=== PATIENT | male | born 1970 | race African-American/Black ===

== ENCOUNTER 2019-02-23 09:58 | Inpatient (IN) | payer OTHER | END 2019-03-03 09:00 | disposition left against medical advice (07) | LOC: YASAS 09:58 → Y3W 13:17 ==

== ENCOUNTER 2021-11-10 13:45 | Emergency (ER) | payer OTHER ==
[2021-11-10 14:02] VITALS: TEMP 98.5; BMI 29.5
[2021-11-10 18:55] VITALS: BP 137/89; PULSE 67
== END 2021-11-10 19:26 | disposition home or self-care (01) ==
LOC: JER 13:45
DX: T40.1X1A Poisoning by heroin, accidental (unintentional), initial encounter (principal)
CPT/HCPCS: 70450-TC; 82962; 93005; 93010; 99284-25

== ENCOUNTER 2022-01-26 09:17 | Inpatient (IN) | payer OTHER ==
[2022-01-26 09:46] VITALS: BMI 33.3
[2022-01-26] MEDS ORDERED: MAGNESIUM CITRATE 300 ML BOTTLE PO PRN (10:04)
[2022-01-26] MEDS ORDERED: ACETAMINOPHEN 325 MG TABLET (FP) PO PRN (10:04)
[2022-01-26] MEDS ORDERED: P-EPHED 60MG/TRIPROLIDI 2.5MG TABLET PO PRN (10:04)
[2022-01-26] MEDS ORDERED: LOPERAMIDE HCL 2 MG CAPSULE PO PRN (10:04)
[2022-01-26] MEDS ORDERED: MAGNESIUM HYDROX 2400MG/30ML ORAL SUSPENSION 30 ML CUP PO PRN (10:04)
[2022-01-26] MEDS ORDERED: MAG HYDROX/AL HYDROX/SIMETH 30 ML UNIT-DOSE CUP PO PRN (10:04)
[2022-01-26] MEDS ORDERED: LORATADINE 10 MG TABLET PO PRN (10:07)
[2022-01-26] MEDS ORDERED: NICOTINE 14 MG/24 HOURS TOPICAL PATCH TD SCH (10:15)
[2022-01-26] MEDS: hydrOXYzine PAMOATE 25 MG CAPSULE (FP) PO SCH ×3 (19:06→21:35)
[2022-01-26] MEDS: NICOTINE 10 MG CARTRIDGE (INHALER) IH PRN (19:07)
[2022-01-26] MEDS: PRENATAL VITAMINS W/ FOLIC ACID TABLET (FP) PO SCH (19:08)
[2022-01-26] MEDS: NICOTINE 7 MG/24 HOURS TOPICAL PATCH TD SCH (19:08)
[2022-01-26] MEDS ORDERED: TUBERCULIN PPD 5 TU/0.1ML VIAL ID ONE (19:10)
[2022-01-26] MEDS: MELATONIN 5 MG TABLETS PO SCH (21:35)
[2022-01-26] MEDS: THIAMINE HCL 100 MG TABLET (FP) PO SCH (21:35)
[2022-01-27] MEDS: hydrOXYzine PAMOATE 25 MG CAPSULE (FP) PO SCH ×5 (06:22→21:08)
[2022-01-27] MEDS: methaDONE HCL 40 MG DISPERSABLE TABLET PO SCH (07:16)
[2022-01-27] MEDS: PRENATAL VITAMINS W/ FOLIC ACID TABLET (FP) PO SCH (10:10)
[2022-01-27] MEDS: amLODIPine BESYLATE 10 MG TABLET (FP) PO SCH (10:10)
[2022-01-27] MEDS: NICOTINE 7 MG/24 HOURS TOPICAL PATCH TD SCH (10:10)
[2022-01-27] MEDS: guaiFENesin 200 MG/10 ML 10 ML UNIT-DOSE CUPS PO PRN ×2 (10:12→21:09)
[2022-01-27] MEDS ORDERED: FLUoxetine HCL 20 MG CAPSULE PO SCH ×2 (10:30→10:45)
[2022-01-27] MEDS ORDERED: FLUoxetine HCL 20 MG CAPSULE PO ONE ×2 (12:13→15:00)
[2022-01-27 12:24] LABS: PH,URINE 5.5 (5.0-8.0); URINE APPEARANCE CLEAR; URINE BILIRUBIN NEGATIVE (NEGATIVE); URINE COLOR YELLOW; URINE GLUCOSE (UA) NEGATIVE (NEGATIVE); URINE KETONE NEGATIVE (NEGATIVE); URINE LEUK ESTERASE NEGATIVE (NEGATIVE); URINE NITRITE NEGATIVE (NEGATIVE); URINE PROTEIN NEGATIVE (NEGATIVE); URINE UROBILINOGEN 0.2 mg/dL (0.2-1.0)
[2022-01-27] MEDS: BENZOCAINE/MENTHOL (CHLORASEPTIC ) LOZENGE MM PRN ×2 (15:24→21:10)
[2022-01-27] MEDS: THIAMINE HCL 100 MG TABLET (FP) PO SCH (21:08)
[2022-01-27] MEDS: MELATONIN 5 MG TABLETS PO SCH (21:08)
[2022-01-27] MEDS: OLANZapine 5 MG TABLET PO SCH (21:09)
[2022-01-28] MEDS: hydrOXYzine PAMOATE 25 MG CAPSULE (FP) PO SCH ×5 (06:25→21:13)
[2022-01-28] MEDS: methaDONE HCL 40 MG DISPERSABLE TABLET PO SCH (06:25)
[2022-01-28] MEDS: guaiFENesin 200 MG/10 ML 10 ML UNIT-DOSE CUPS PO PRN (06:27)
[2022-01-28] MEDS: BENZOCAINE/MENTHOL (CHLORASEPTIC ) LOZENGE MM PRN (06:27)
[2022-01-28] MEDS: PRENATAL VITAMINS W/ FOLIC ACID TABLET (FP) PO SCH (10:09)
[2022-01-28] MEDS: NICOTINE 7 MG/24 HOURS TOPICAL PATCH TD SCH (10:09)
[2022-01-28] MEDS: FLUoxetine HCL 20 MG CAPSULE PO SCH (10:09)
[2022-01-28] MEDS: amLODIPine BESYLATE 10 MG TABLET (FP) PO SCH (10:09)
[2022-01-28 14:27] LABS: ALBUMIN 3.5 g/dl (3.4-5.0); CREATININE 0.9 mg/dL (0.55-1.3)
[2022-01-28 14:28] LABS: BLOOD UREA NITROGEN 12.2 mg/dL (7-18)
[2022-01-28 14:32] LABS: TOT PROT 6.8 g/dl (6.4-8.2)
[2022-01-28 14:33] LABS: BILIRUBIN,TOTAL 0.5 mg/dL (0.2-1); HEMATOCRIT 38.9 % (35.4-49); HEMOGLOBIN 12.8 GM/dL (11.7-16.9); MCH 31.7 pg (25.7-33.7); MCHC 32.9 g/dl (32.0-35.9); MEAN CELL VOLUME 96.5 fl (80-96); MEAN PLT VOLUME 9.2 fl (7.5-11.1); PLATELET COUNT 247 10^3/uL (134-434); RBC 4.03 M/mm3 (4.00-5.60); RDW 13.5 % (11.9-15.9); WHITE BLOOD COUNT 8.3 K/mm3 (4.0-10.0)
[2022-01-28] MEDS ORDERED: [UNRECOGNIZED DRUG - REMARK] PO PRN (15:03)
[2022-01-28] MEDS: SULFAMETHOXAZOLE/TRIMETHOPRIM 800MG/160MG D.S. TABLET PO SCH ×2 (15:28→21:13)
[2022-01-28 15:38] LABS: HIV INTERPRETATION NEGATIVE (NEGATIVE)
[2022-01-28 15:43] LABS: SYPHILIS W/ RPR CONF REACTIVE (NONREACTIVE)
[2022-01-28] MEDS: ERYTHROMYCIN 0.5% OPHTHALMIC OINTMENT 3.5 GM TUBE OS SCH ×2 (17:50→21:14)
[2022-01-28] MEDS: OLANZapine 5 MG TABLET PO SCH (21:13)
[2022-01-28] MEDS: MELATONIN 5 MG TABLETS PO SCH (21:13)
[2022-01-28] MEDS: THIAMINE HCL 100 MG TABLET (FP) PO SCH (21:13)
[2022-01-29] MEDS: hydrOXYzine PAMOATE 25 MG CAPSULE (FP) PO SCH ×5 (06:56→21:45)
[2022-01-29] MEDS: methaDONE HCL 40 MG DISPERSABLE TABLET PO SCH (06:57)
[2022-01-29] MEDS ORDERED: BACITRACIN 3.5 GM OPTHALMIC OINT TUBE OS SCH (09:15)
[2022-01-29] MEDS: FLUoxetine HCL 20 MG CAPSULE PO SCH (10:17)
[2022-01-29] MEDS: SULFAMETHOXAZOLE/TRIMETHOPRIM 800MG/160MG D.S. TABLET PO SCH ×2 (10:18→21:45)
[2022-01-29] MEDS: amLODIPine BESYLATE 10 MG TABLET (FP) PO SCH (10:18)
[2022-01-29] MEDS: NICOTINE 7 MG/24 HOURS TOPICAL PATCH TD SCH (10:18)
[2022-01-29] MEDS: PRENATAL VITAMINS W/ FOLIC ACID TABLET (FP) PO SCH (10:19)
[2022-01-29] MEDS: ERYTHROMYCIN 0.5% OPHTHALMIC OINTMENT 3.5 GM TUBE OS SCH ×4 (10:20→21:46)
[2022-01-29] MEDS: THIAMINE HCL 100 MG TABLET (FP) PO SCH (21:45)
[2022-01-29] MEDS: OLANZapine 5 MG TABLET PO SCH (21:45)
[2022-01-29] MEDS: MELATONIN 5 MG TABLETS PO SCH (21:45)
[2022-01-30] MEDS: methaDONE HCL 40 MG DISPERSABLE TABLET PO SCH (06:21)
[2022-01-30] MEDS: hydrOXYzine PAMOATE 25 MG CAPSULE (FP) PO SCH ×5 (06:21→21:17)
[2022-01-30] MEDS: PRENATAL VITAMINS W/ FOLIC ACID TABLET (FP) PO SCH (09:48)
[2022-01-30] MEDS: FLUoxetine HCL 20 MG CAPSULE PO SCH (09:49)
[2022-01-30] MEDS: NICOTINE 7 MG/24 HOURS TOPICAL PATCH TD SCH (09:49)
[2022-01-30] MEDS: amLODIPine BESYLATE 10 MG TABLET (FP) PO SCH (09:50)
[2022-01-30] MEDS: SULFAMETHOXAZOLE/TRIMETHOPRIM 800MG/160MG D.S. TABLET PO SCH ×2 (09:50→21:18)
[2022-01-30] MEDS: ERYTHROMYCIN 0.5% OPHTHALMIC OINTMENT 3.5 GM TUBE OS SCH ×4 (09:50→23:46)
[2022-01-30] MEDS: NICOTINE 10 MG CARTRIDGE (INHALER) IH PRN (09:52)
[2022-01-30] MEDS: guaiFENesin 200 MG/10 ML 10 ML UNIT-DOSE CUPS PO PRN ×2 (09:55→21:19)
[2022-01-30] MEDS: BENZOCAINE/MENTHOL (CHLORASEPTIC ) LOZENGE MM PRN ×2 (09:55→21:20)
[2022-01-30] MEDS: THIAMINE HCL 100 MG TABLET (FP) PO SCH (21:17)
[2022-01-30] MEDS: MELATONIN 5 MG TABLETS PO SCH (21:17)
[2022-01-30] MEDS: OLANZapine 5 MG TABLET PO SCH (21:18)
[2022-01-31] MEDS: IBUPROFEN 400 MG TABLET (FP) PO PRN ×2 (01:11→10:15)
[2022-01-31] MEDS: methaDONE HCL 40 MG DISPERSABLE TABLET PO SCH (06:57)
[2022-01-31] MEDS: hydrOXYzine PAMOATE 25 MG CAPSULE (FP) PO SCH ×5 (06:57→21:37)
[2022-01-31] MEDS: ERYTHROMYCIN 0.5% OPHTHALMIC OINTMENT 3.5 GM TUBE OS SCH ×4 (10:11→21:50)
[2022-01-31] MEDS: amLODIPine BESYLATE 10 MG TABLET (FP) PO SCH (10:11)
[2022-01-31] MEDS: PRENATAL VITAMINS W/ FOLIC ACID TABLET (FP) PO SCH (10:11)
[2022-01-31] MEDS: NICOTINE 7 MG/24 HOURS TOPICAL PATCH TD SCH (10:11)
[2022-01-31] MEDS: FLUoxetine HCL 20 MG CAPSULE PO SCH (10:11)
[2022-01-31] MEDS: SULFAMETHOXAZOLE/TRIMETHOPRIM 800MG/160MG D.S. TABLET PO SCH ×2 (10:11→21:37)
[2022-01-31] MEDS: guaiFENesin 200 MG/10 ML 10 ML UNIT-DOSE CUPS PO PRN ×2 (10:15→21:38)
[2022-01-31] MEDS: BENZOCAINE/MENTHOL (CHLORASEPTIC ) LOZENGE MM PRN ×2 (10:16→21:39)
[2022-01-31] MEDS: OLANZapine 5 MG TABLET PO SCH (21:37)
[2022-01-31] MEDS: THIAMINE HCL 100 MG TABLET (FP) PO SCH (21:37)
[2022-01-31] MEDS: MELATONIN 5 MG TABLETS PO SCH (21:37)
[2022-02-01] MEDS: methaDONE HCL 40 MG DISPERSABLE TABLET PO SCH (06:04)
[2022-02-01] MEDS: hydrOXYzine PAMOATE 25 MG CAPSULE (FP) PO SCH ×5 (06:04→21:11)
[2022-02-01] MEDS: PRENATAL VITAMINS W/ FOLIC ACID TABLET (FP) PO SCH (09:58)
[2022-02-01] MEDS: SULFAMETHOXAZOLE/TRIMETHOPRIM 800MG/160MG D.S. TABLET PO SCH ×2 (09:58→21:11)
[2022-02-01] MEDS: amLODIPine BESYLATE 10 MG TABLET (FP) PO SCH (09:58)
[2022-02-01] MEDS: ERYTHROMYCIN 0.5% OPHTHALMIC OINTMENT 3.5 GM TUBE OS SCH ×4 (09:59→21:12)
[2022-02-01] MEDS: NICOTINE 7 MG/24 HOURS TOPICAL PATCH TD SCH (09:59)
[2022-02-01] MEDS ORDERED: LIDOCAINE VISCOUS 2% ORAL/TOP 15 ML UNIT-DOSE CUP MM PRN (11:28)
[2022-02-01] MEDS: FLUoxetine HCL 20 MG CAPSULE PO SCH (12:16)
[2022-02-01] MEDS: OLANZapine 5 MG TABLET PO SCH (21:11)
[2022-02-01] MEDS: MELATONIN 5 MG TABLETS PO SCH (21:12)
[2022-02-01] MEDS: THIAMINE HCL 100 MG TABLET (FP) PO SCH (21:12)
[2022-02-01] MEDS: BENZOCAINE/MENTHOL (CHLORASEPTIC ) LOZENGE MM PRN (21:14)
[2022-02-01] MEDS: guaiFENesin 200 MG/10 ML 10 ML UNIT-DOSE CUPS PO PRN (21:14)
[2022-02-02] MEDS: hydrOXYzine PAMOATE 25 MG CAPSULE (FP) PO SCH ×2 (06:53→11:58)
[2022-02-02] MEDS: methaDONE HCL 40 MG DISPERSABLE TABLET PO SCH (06:54)
[2022-02-02] MEDS: PRENATAL VITAMINS W/ FOLIC ACID TABLET (FP) PO SCH (10:37)
[2022-02-02] MEDS: FLUoxetine HCL 20 MG CAPSULE PO SCH (10:37)
[2022-02-02] MEDS: SULFAMETHOXAZOLE/TRIMETHOPRIM 800MG/160MG D.S. TABLET PO SCH ×2 (10:38→22:10)
[2022-02-02] MEDS: NICOTINE 7 MG/24 HOURS TOPICAL PATCH TD SCH (10:39)
[2022-02-02] MEDS: NICOTINE 10 MG CARTRIDGE (INHALER) IH PRN (10:40)
[2022-02-02] MEDS: ERYTHROMYCIN 0.5% OPHTHALMIC OINTMENT 3.5 GM TUBE OS SCH ×4 (10:41→22:11)
[2022-02-02] MEDS: guaiFENesin 200 MG/10 ML 10 ML UNIT-DOSE CUPS PO PRN (10:42)
[2022-02-02] MEDS: BENZOCAINE/MENTHOL (CHLORASEPTIC ) LOZENGE MM PRN (10:44)
[2022-02-02] MEDS: amLODIPine BESYLATE 10 MG TABLET (FP) PO SCH (11:58)
[2022-02-02] MEDS: OLANZapine 5 MG TABLET PO SCH (22:10)
[2022-02-02] MEDS: THIAMINE HCL 100 MG TABLET (FP) PO SCH (22:10)
[2022-02-02] MEDS: MELATONIN 5 MG TABLETS PO SCH (22:10)
[2022-02-03] MEDS: methaDONE HCL 40 MG DISPERSABLE TABLET PO SCH (06:39)
[2022-02-03] MEDS: FLUoxetine HCL 20 MG CAPSULE PO SCH (09:59)
[2022-02-03] MEDS: amLODIPine BESYLATE 10 MG TABLET (FP) PO SCH (10:00)
[2022-02-03] MEDS: NICOTINE 7 MG/24 HOURS TOPICAL PATCH TD SCH (10:00)
[2022-02-03] MEDS: SULFAMETHOXAZOLE/TRIMETHOPRIM 800MG/160MG D.S. TABLET PO SCH ×2 (10:00→21:03)
[2022-02-03] MEDS: ERYTHROMYCIN 0.5% OPHTHALMIC OINTMENT 3.5 GM TUBE OS SCH ×4 (10:01→21:04)
[2022-02-03] MEDS: PRENATAL VITAMINS W/ FOLIC ACID TABLET (FP) PO SCH (10:02)
[2022-02-03] MEDS: OLANZapine 5 MG TABLET PO SCH (21:03)
[2022-02-03] MEDS: THIAMINE HCL 100 MG TABLET (FP) PO SCH (21:03)
[2022-02-03] MEDS: MELATONIN 5 MG TABLETS PO SCH (21:03)
[2022-02-04] MEDS: methaDONE HCL 40 MG DISPERSABLE TABLET PO SCH (06:27)
[2022-02-04] MEDS: PRENATAL VITAMINS W/ FOLIC ACID TABLET (FP) PO SCH (10:11)
[2022-02-04] MEDS: FLUoxetine HCL 20 MG CAPSULE PO SCH (10:12)
[2022-02-04] MEDS: ERYTHROMYCIN 0.5% OPHTHALMIC OINTMENT 3.5 GM TUBE OS SCH ×4 (10:12→21:28)
[2022-02-04] MEDS: amLODIPine BESYLATE 10 MG TABLET (FP) PO SCH (10:12)
[2022-02-04] MEDS: NICOTINE 7 MG/24 HOURS TOPICAL PATCH TD SCH (10:13)
[2022-02-04] MEDS: guaiFENesin 600 MG TABLET.ER (FP) PO SCH ×2 (11:05→21:26)
[2022-02-04] MEDS: NAPHAZOLINE/PHENIRAMINE OPHTHALMIC 15 ML BOTTLE OS PRN ×2 (11:06→21:27)
[2022-02-04] MEDS: MELATONIN 5 MG TABLETS PO SCH (21:26)
[2022-02-04] MEDS: THIAMINE HCL 100 MG TABLET (FP) PO SCH (21:26)
[2022-02-04] MEDS: OLANZapine 5 MG TABLET PO SCH (21:26)
[2022-02-05] MEDS: methaDONE HCL 40 MG DISPERSABLE TABLET PO SCH (07:13)
[2022-02-05] MEDS: ERYTHROMYCIN 0.5% OPHTHALMIC OINTMENT 3.5 GM TUBE OS SCH ×4 (09:14→23:57)
[2022-02-05] MEDS: NAPHAZOLINE/PHENIRAMINE OPHTHALMIC 15 ML BOTTLE OS PRN ×2 (09:14→21:50)
[2022-02-05] MEDS: PRENATAL VITAMINS W/ FOLIC ACID TABLET (FP) PO SCH (09:14)
[2022-02-05] MEDS: guaiFENesin 600 MG TABLET.ER (FP) PO SCH ×2 (09:15→21:49)
[2022-02-05] MEDS: FLUoxetine HCL 20 MG CAPSULE PO SCH (09:16)
[2022-02-05] MEDS: amLODIPine BESYLATE 10 MG TABLET (FP) PO SCH (09:16)
[2022-02-05] MEDS: NICOTINE 7 MG/24 HOURS TOPICAL PATCH TD SCH (09:16)
[2022-02-05] MEDS: MELATONIN 5 MG TABLETS PO SCH (21:49)
[2022-02-05] MEDS: OLANZapine 5 MG TABLET PO SCH (21:49)
[2022-02-05] MEDS: hydrOXYzine PAMOATE 25 MG CAPSULE (FP) PO PRN (21:49)
[2022-02-05] MEDS: THIAMINE HCL 100 MG TABLET (FP) PO SCH (21:50)
[2022-02-05] MEDS: BENZOCAINE/MENTHOL (CHLORASEPTIC ) LOZENGE MM PRN (21:53)
[2022-02-06] MEDS: methaDONE HCL 40 MG DISPERSABLE TABLET PO SCH (06:32)
[2022-02-06] MEDS: ERYTHROMYCIN 0.5% OPHTHALMIC OINTMENT 3.5 GM TUBE OS SCH ×4 (10:28→21:29)
[2022-02-06] MEDS: NICOTINE 7 MG/24 HOURS TOPICAL PATCH TD SCH (10:28)
[2022-02-06] MEDS: FLUoxetine HCL 20 MG CAPSULE PO SCH (10:28)
[2022-02-06] MEDS: amLODIPine BESYLATE 10 MG TABLET (FP) PO SCH (10:28)
[2022-02-06] MEDS: PRENATAL VITAMINS W/ FOLIC ACID TABLET (FP) PO SCH (10:28)
[2022-02-06] MEDS: guaiFENesin 600 MG TABLET.ER (FP) PO SCH ×2 (10:29→21:28)
[2022-02-06] MEDS: OLANZapine 5 MG TABLET PO SCH (21:28)
[2022-02-06] MEDS: MELATONIN 5 MG TABLETS PO SCH (21:28)
[2022-02-06] MEDS: THIAMINE HCL 100 MG TABLET (FP) PO SCH (21:28)
[2022-02-07] MEDS: methaDONE HCL 40 MG DISPERSABLE TABLET PO SCH (06:39)
[2022-02-07] MEDS: FLUoxetine HCL 20 MG CAPSULE PO SCH (11:06)
[2022-02-07] MEDS: amLODIPine BESYLATE 10 MG TABLET (FP) PO SCH (11:06)
[2022-02-07] MEDS: ERYTHROMYCIN 0.5% OPHTHALMIC OINTMENT 3.5 GM TUBE OS SCH ×4 (11:07→21:25)
[2022-02-07] MEDS: guaiFENesin 600 MG TABLET.ER (FP) PO SCH ×2 (11:07→21:53)
[2022-02-07] MEDS: PRENATAL VITAMINS W/ FOLIC ACID TABLET (FP) PO SCH (11:07)
[2022-02-07] MEDS: NICOTINE 7 MG/24 HOURS TOPICAL PATCH TD SCH (11:07)
[2022-02-07] MEDS: BENZOCAINE/MENTHOL (CHLORASEPTIC ) LOZENGE MM PRN (11:09)
[2022-02-07] MEDS: OLANZapine 5 MG TABLET PO SCH (21:23)
[2022-02-07] MEDS: MELATONIN 5 MG TABLETS PO SCH (21:23)
[2022-02-07] MEDS: THIAMINE HCL 100 MG TABLET (FP) PO SCH (21:23)
[2022-02-08] MEDS: methaDONE HCL 40 MG DISPERSABLE TABLET PO SCH (06:27)
[2022-02-08 08:28] VITALS: TEMP 96.8
[2022-02-08] MEDS: PRENATAL VITAMINS W/ FOLIC ACID TABLET (FP) PO SCH (10:27)
[2022-02-08] MEDS: amLODIPine BESYLATE 10 MG TABLET (FP) PO SCH (10:27)
[2022-02-08] MEDS: ERYTHROMYCIN 0.5% OPHTHALMIC OINTMENT 3.5 GM TUBE OS SCH ×4 (10:27→21:14)
[2022-02-08] MEDS: guaiFENesin 600 MG TABLET.ER (FP) PO SCH ×2 (10:27→21:14)
[2022-02-08] MEDS: NICOTINE 7 MG/24 HOURS TOPICAL PATCH TD SCH (10:27)
[2022-02-08] MEDS: FLUoxetine HCL 20 MG CAPSULE PO SCH (10:27)
[2022-02-08] MEDS: IBUPROFEN 400 MG TABLET (FP) PO PRN (10:29)
[2022-02-08] MEDS: hydrOXYzine PAMOATE 25 MG CAPSULE (FP) PO PRN (10:30)
[2022-02-08 11:07] VITALS: BP 114/76; PULSE 70
[2022-02-08] MEDS: OLANZapine 5 MG TABLET PO SCH (21:13)
[2022-02-08] MEDS: MELATONIN 5 MG TABLETS PO SCH (21:14)
[2022-02-08] MEDS: THIAMINE HCL 100 MG TABLET (FP) PO SCH (21:14)
[2022-02-09] MEDS: methaDONE HCL 40 MG DISPERSABLE TABLET PO SCH (06:10)
[2022-02-09] MEDS: NICOTINE 7 MG/24 HOURS TOPICAL PATCH TD SCH (09:08)
[2022-02-09] MEDS: amLODIPine BESYLATE 10 MG TABLET (FP) PO SCH (09:08)
[2022-02-09] MEDS: FLUoxetine HCL 20 MG CAPSULE PO SCH (09:08)
[2022-02-09] MEDS: guaiFENesin 600 MG TABLET.ER (FP) PO SCH (09:08)
[2022-02-09] MEDS: ERYTHROMYCIN 0.5% OPHTHALMIC OINTMENT 3.5 GM TUBE OS SCH (09:09)
== END 2022-02-09 09:17 | disposition home or self-care (01) | DRG 772 ==
LOC: YASAS 09:17 → Y3W 17:44
PROVIDERS: ADMIT Allergy & Immunology; ATTEND Psychiatry & Neurology Pain Medicine
PROC: HZ42ZZZ Group Counseling for Substance Abuse Treatment, Cognitive-Behavioral (ICD-10-PCS; principal; 2022-01-26)
DX: F10.20 Alcohol dependence, uncomplicated (principal); F16.20 Hallucinogen dependence, uncomplicated; F17.210 Nicotine dependence, cigarettes, uncomplicated; F19.282 Other psychoactive substance dependence with psychoactive substance-induced sleep disorder; F19.24 Other psychoactive substance dependence with psychoactive substance-induced mood disorder; F41.9 Anxiety disorder, unspecified; F32.A Depression, unspecified; E78.5 Hyperlipidemia, unspecified; I10 Essential (primary) hypertension; J30.2 Other seasonal allergic rhinitis
CPT/HCPCS: 36415; 71045-TC-FY; 80053; 81003; 82947; 83036; 85027; 86593; 86780; 86803; 87389; 90832; C9803-CS; U0003; U0005

== ENCOUNTER 2022-01-28 11:19 | Emergency (ER) | payer OTHER ==
[2022-01-28 11:47] VITALS: BMI 34.7
[2022-01-28] MEDS ORDERED: ACETAMINOPHEN 500 MG TABLET (FP) PO ONE (12:19)
[2022-01-28] MEDS ORDERED: ACETAMINOPHEN 500 MG TABLET (FP) ONE (12:23)
[2022-01-28 14:14] VITALS: BP 121/76; PULSE 64
== END 2022-01-28 14:40 | disposition home or self-care (01) ==
LOC: JERFT 11:19
DX: S09.93XA Unspecified injury of face, initial encounter (principal); H10.32 Unspecified acute conjunctivitis, left eye
CPT/HCPCS: 70486-TC; 99284-25

== ENCOUNTER 2022-03-30 12:46 | Inpatient (IN) | payer OTHER ==
[2022-03-30 14:00] VITALS: RESP 18; BMI 36.9
[2022-03-31 00:04] VITALS: BP 126/73; PULSE 64; TEMP 97.1
== END 2022-03-31 12:00 | disposition home or self-care (01) | DRG 772 ==
LOC: YASAS 12:46 → Y5N 23:32
PROVIDERS: ADMIT Allergy & Immunology; ATTEND Psychiatry & Neurology Pain Medicine
PROC: HZ42ZZZ Group Counseling for Substance Abuse Treatment, Cognitive-Behavioral (ICD-10-PCS; principal; 2022-03-30)
DX: F11.20 Opioid dependence, uncomplicated (principal); F16.20 Hallucinogen dependence, uncomplicated; F10.20 Alcohol dependence, uncomplicated; F12.20 Cannabis dependence, uncomplicated; F17.210 Nicotine dependence, cigarettes, uncomplicated; G47.00 Insomnia, unspecified; I10 Essential (primary) hypertension; E11.9 Type 2 diabetes mellitus without complications; Z86.59 Personal history of other mental and behavioral disorders
CPT/HCPCS: 82962; 93005; 93010; 99284-25; C9803-CS; U0003; U0005

== ENCOUNTER 2022-03-30 15:41 | Emergency (ER) | payer OTHER ==
[2022-03-30 16:07] VITALS: TEMP 98.7; BMI 36.9
[2022-03-30] MEDS ORDERED: NALOXONE HCL 0.4 MG/ML VIAL IVPUSH ONE ×3 (17:24→21:34)
[2022-03-30] MEDS ORDERED: NALOXONE HCL 0.4 MG/ML VIAL ONE ×2 (17:44→21:39)
[2022-03-30 20:49] VITALS: BP 115/67; PULSE 71; RESP 20
== END 2022-03-30 22:53 ==
LOC: JER 15:41
PROC: 3E033GC Introduction of Other Therapeutic Substance into Peripheral Vein, Percutaneous Approach (ICD-10-PCS; principal; 2022-03-30)
DX: T50.904A Poisoning by unspecified drugs, medicaments and biological substances, undetermined, initial encounter (principal)
CPT/HCPCS: 93005; 93010; 99284-25; C9803-CS; U0003; U0005

== ENCOUNTER 2022-04-23 11:36 | Inpatient (IN) | payer OTHER ==
[2022-04-23 12:15] VITALS: BMI 39.1
[2022-04-23] MEDS ORDERED: KETOROLAC TROMETHAMINE 30 MG/1 ML VIAL IVPUSH ONE (13:10)
[2022-04-23] MEDS ORDERED: KETOROLAC TROMETHAMINE 30 MG/1 ML VIAL ONE (13:37)
[2022-04-23 14:23] LABS: HEMATOCRIT 34.6 % (35.4-49); HEMOGLOBIN 11.1 GM/dL (11.7-16.9); MCH 30.6 pg (25.7-33.7); MEAN CELL VOLUME 95.7 fl (80-96); MEAN PLT VOLUME 7.5 fl (7.5-11.1); PLATELET COUNT 326 10^3/uL (134-434); RBC 3.62 M/mm3 (4.00-5.60); RDW 14.3 % (11.9-15.9); WHITE BLOOD COUNT 22.9 K/mm3 (4.0-10.0)
[2022-04-23 14:37] LABS: INR 1.16 (0.83-1.09); PROTHROMBIN TIME (PATIENT) 13.4 SEC (9.7-13.0)
[2022-04-23 14:47] LABS: ANISOCYTOSIS 0; HELMET CELLS 0; HOWELL-JOLLY BODIES 0; MACROCYTOSIS 0; OVALOCYTE 0; ROULEAU 0; SICKELED CELLS 0; TARGET CELLS 0; TEAR DROP CELLS 0; TOXIC GRANULATION 0
[2022-04-23 14:52] LABS: CALCIUM 8.8 mg/dL (8.5-10.1)
[2022-04-23 14:54] LABS: ALBUMIN 3.1 g/dl (3.4-5.0); BLOOD UREA NITROGEN 11.3 mg/dL (7-18); MAGNESIUM 2.2 mg/dL (1.8-2.4)
[2022-04-23 14:57] LABS: CREATININE 0.8 mg/dL (0.55-1.3)
[2022-04-23 14:59] LABS: BILIRUBIN,TOTAL 0.9 mg/dL (0.2-1)
[2022-04-23 15:01] LABS: N-TERMINAL BNP 34.5 pg/ml (5-125)
[2022-04-23 16:01] LABS: EPI CELLS 13 /uL (0-25.1); HYALINE CASTS 2 /uL (0-3.1); URINE APPEARANCE CLEAR; URINE BACTERIA 0 /uL (0-1359); URINE BILIRUBIN 1+ (NEGATIVE); URINE COLOR DK YELLOW; URINE GLUCOSE (UA) NEGATIVE (NEGATIVE); URINE KETONE TRACE (NEGATIVE); URINE LEUK ESTERASE TRACE (NEGATIVE); URINE NITRITE NEGATIVE (NEGATIVE); URINE PROTEIN NEGATIVE (NEGATIVE); URINE RBC 15 /uL (0-23.9); URINE WBC 32 /uL (0-25.8)
[2022-04-23] MEDS ORDERED: VANCOMYCIN/WATER 1,250 MG/250 ML BAG IVPB ONE (19:06)
[2022-04-23] MEDS ORDERED: PIPERACILLIN/TAZOB 4.5 GM 4.5 GM in DEXTROSE 5%-WATER 100 ML IVPB ONE (19:06)
[2022-04-23] MEDS ORDERED: VANCOMYCIN/WATER 1250 MG 1,250 MG/250 ML BAG IVPB ONE (19:25)
[2022-04-23] MEDS ORDERED: PIPERACILLIN/TAZOB 4.5 GM 4.5 GM/100 ML BAG IVPB ONE (19:25)
[2022-04-23 19:36] LABS: BF WBC & OTHER NUCLEATED CELLS 940 /mm3
[2022-04-23] MEDS ORDERED: DOCUSATE SODIUM 100 MG CAPSULE (FP) PO PRN (19:51)
[2022-04-23] MEDS ORDERED: KETOROLAC TROMETHAMINE 15 MG/ML VIAL IVPUSH PRN (19:57)
[2022-04-23] MEDS ORDERED: ACETAMINOPHEN 1000 MG/100 ML BAG IVPB PRN (19:58)
[2022-04-23] MEDS ORDERED: MELATONIN 5 MG TABLETS PO PRN (19:59)
[2022-04-23 21:24] LABS: BODY FLUID BASOPHIL 1 %; BODY FLUID MONOCYTE 33 %; BODYL FLD EOSINOPHIL 1 %
[2022-04-24] MEDS: PIPERACILLIN/TAZOB 3.375 GM 3.375 GM in DEXTROSE 5%-WATER - 50 ML IVPB SCH ×3 (01:42→17:06)
[2022-04-24] MEDS ORDERED: NAPHAZOLINE/PHENIRAMINE OPHTHALMIC 15 ML BOTTLE OD PRN (04:09)
[2022-04-24] MEDS ORDERED: NICOTINE POLACRILEX 4 MG GUM BUC PRN (04:11)
[2022-04-24] MEDS ORDERED: VANCOMYCIN HCL 1,500 MG in DEXTROSE 5%-WATER - 500 ML IVPB ONE (07:00)
[2022-04-24] MEDS ORDERED: LORATADINE 10 MG TABLET PO PRN (07:17)
[2022-04-24 08:22] LABS: BASO % 0.5 % (0-2.0); EOS % 3.2 % (0-4.5); HEMATOCRIT 35.7 % (35.4-49); HEMOGLOBIN 11.5 GM/dL (11.7-16.9); LYMPH % 22.3 % (8-40); MCH 30.8 pg (25.7-33.7); MCHC 32.2 g/dl (32.0-35.9); MEAN CELL VOLUME 95.5 fl (80-96); MEAN PLT VOLUME 7.6 fl (7.5-11.1); MONO % 5.5 % (3.8-10.2); NEUT % 68.5 % (42.8-82.8); PLATELET COUNT 283 10^3/uL (134-434); RBC 3.73 M/mm3 (4.00-5.60); RDW 14.3 % (11.9-15.9); WHITE BLOOD COUNT 10.5 K/mm3 (4.0-10.0)
[2022-04-24 08:38] LABS: CALCIUM 8.5 mg/dL (8.5-10.1)
[2022-04-24 08:39] LABS: BLOOD UREA NITROGEN 12.5 mg/dL (7-18)
[2022-04-24 08:42] LABS: CREATININE 0.9 mg/dL (0.55-1.3)
[2022-04-24 08:51] LABS: URINE AMPHETAMINES NEGATIVE (NEGATIVE); URINE BARBITURATES NEGATIVE (NEGATIVE); URINE BENZODIAZEPINES NEGATIVE (NEGATIVE)
[2022-04-24 08:53] LABS: COCAINE, UR NEGATIVE (NEGATIVE)
[2022-04-24] MEDS: ENOXAPARIN NA (PORCINE) 40 MG/0.4 ML DISP.SYRIN SQ SCH (09:18)
[2022-04-24] MEDS: amLODIPine BESYLATE 10 MG TABLET (FP) PO SCH (09:19)
[2022-04-24 09:26] LABS: METHADONE, UR POSITIVE (NEGATIVE); OPIATES, URI POSITIVE (NEGATIVE); PHENCYCLIDINE,URINE POSITIVE (NEGATIVE)
[2022-04-24] MEDS: FLUoxetine HCL 20 MG CAPSULE PO SCH (11:07)
[2022-04-24] MEDS: OLANZapine 5 MG TABLET PO SCH (11:07)
[2022-04-24] MEDS: ATORVASTATIN CA 20 MG TABLET (FP) PO SCH (21:52)
[2022-04-24] MEDS: ACETAMINOPHEN 325 MG TABLET (FP) PO PRN (23:42)
[2022-04-25] MEDS: PIPERACILLIN/TAZOB 3.375 GM 3.375 GM in DEXTROSE 5%-WATER - 50 ML IVPB SCH ×4 (03:11→18:17)
[2022-04-25 09:04] VITALS: RESP 18
[2022-04-25] MEDS: ENOXAPARIN NA (PORCINE) 40 MG/0.4 ML DISP.SYRIN SQ SCH (09:04)
[2022-04-25] MEDS: OLANZapine 5 MG TABLET PO SCH (09:05)
[2022-04-25] MEDS: ACETAMINOPHEN 325 MG TABLET (FP) PO PRN (09:05)
[2022-04-25] MEDS: amLODIPine BESYLATE 10 MG TABLET (FP) PO SCH (09:05)
[2022-04-25] MEDS: FLUoxetine HCL 20 MG CAPSULE PO SCH (09:05)
[2022-04-25] MEDS: VANCOMYCIN HCL 1,500 MG in DEXTROSE 5%-WATER - 500 ML IVPB SCH (13:12)
[2022-04-25] MEDS: VANCOMYCIN/WATER FOR INJ (PEG) 1,000 MG/200 ML BAG IVPB SCH (14:34)
[2022-04-25] MEDS: ATORVASTATIN CA 20 MG TABLET (FP) PO SCH (21:05)
[2022-04-26] MEDS: VANCOMYCIN/WATER FOR INJ (PEG) 1,000 MG/200 ML BAG IVPB SCH ×2 (02:20→03:23)
[2022-04-26] MEDS: PIPERACILLIN/TAZOB 3.375 GM 3.375 GM in DEXTROSE 5%-WATER - 50 ML IVPB SCH ×2 (02:23→02:58)
[2022-04-26 09:14] LABS: HEMATOCRIT 33.4 % (35.4-49); HEMOGLOBIN 10.8 GM/dL (11.7-16.9); MCH 30.5 pg (25.7-33.7); MCHC 32.2 g/dl (32.0-35.9); MEAN CELL VOLUME 94.7 fl (80-96); MEAN PLT VOLUME 8.1 fl (7.5-11.1); PLATELET COUNT 324 10^3/uL (134-434); RBC 3.53 M/mm3 (4.00-5.60); RDW 13.6 % (11.9-15.9); WHITE BLOOD COUNT 20.5 K/mm3 (4.0-10.0)
[2022-04-26 09:40] LABS: ALBUMIN 2.8 g/dl (3.4-5.0); BLOOD UREA NITROGEN 12.4 mg/dL (7-18)
[2022-04-26 09:42] LABS: CREATININE 0.9 mg/dL (0.55-1.3)
[2022-04-26 09:44] LABS: CALCIUM 8.4 mg/dL (8.5-10.1)
[2022-04-26 09:45] LABS: BILIRUBIN,TOTAL 1.2 mg/dL (0.2-1)
[2022-04-26 09:51] LABS: TOT PROT 6.7 g/dl (6.4-8.2)
[2022-04-26 10:03] VITALS: BP 138/93; PULSE 96; TEMP 98.9
[2022-04-26 11:07] LABS: ANISOCYTOSIS 0; MACROCYTOSIS 0
[2022-04-26 12:05] LABS: HIV INTERPRETATION NEGATIVE (NEGATIVE)
== END 2022-04-26 10:11 | disposition home or self-care (01) | DRG 383 ==
LOC: JER 11:36 → JERBED 19:08 → J7W 23:06
PROVIDERS: ADMIT Internal Medicine; ATTEND Internal Medicine
PROC: 0S9C3ZZ Drainage of Right Knee Joint, Percutaneous Approach (ICD-10-PCS; principal; 2022-04-23)
DX: L03.115 Cellulitis of right lower limb (principal); I10 Essential (primary) hypertension; E78.5 Hyperlipidemia, unspecified; F41.8 Other specified anxiety disorders; F19.10 Other psychoactive substance abuse, uncomplicated; F11.20 Opioid dependence, uncomplicated; F17.200 Nicotine dependence, unspecified, uncomplicated; E11.9 Type 2 diabetes mellitus without complications; M25.561 Pain in right knee; J98.11 Atelectasis
CPT/HCPCS: 0241U-QW; 36415; 71046-TC-FY; 73562-TC-RT-FY; 80048; 80053; 80307; 81003; 83735; 83880; 84439; 84443; 84484; 84560; 85025; 85610; 85730; 87040; 87070; 87075; 87086; 87205; 87389; 93005; 93010; 93971-TC; 99285-25

== ENCOUNTER 2022-11-28 01:06 | Emergency (ER) | payer OTHER ==
[2022-11-28 01:11] VITALS: BP 122/67; PULSE 88; RESP 17; TEMP 98.8; BMI 43.5
== END 2022-11-28 06:37 | disposition home or self-care (01) ==
LOC: JER 01:06
DX: R60.0 Localized edema (principal)
CPT/HCPCS: 99282-25

== ENCOUNTER 2023-01-24 04:30 | Observation (INO) | payer OTHER ==
[2023-01-24 07:00] LABS: POTASSIUM 4.5 mmol/L (3.5-5.1)
[2023-01-24 07:02] LABS: ALBUMIN 3.2 g/dl (3.4-5.0)
[2023-01-24 07:03] LABS: BLOOD UREA NITROGEN 15.6 mg/dL (7-18)
[2023-01-24 07:05] LABS: CREATININE 0.7 mg/dL (0.55-1.3)
[2023-01-24 07:07] LABS: BILIRUBIN,TOTAL 0.5 mg/dL (0.2-1)
[2023-01-24 07:10] LABS: N-TERMINAL BNP 22.7 pg/ml (5-125)
[2023-01-24 08:38] LABS: BASO % 0.5 % (0-2.0); EOS % 3.6 % (0-4.5); HEMATOCRIT 39.5 % (35.4-49); HEMOGLOBIN 12.7 GM/dL (11.7-16.9); LYMPH % 29.8 % (8-40); MCH 30.2 pg (25.7-33.7); MEAN CELL VOLUME 94.3 fl (80-96); MEAN PLT VOLUME 8.2 fl (7.5-11.1); MONO % 8.2 % (3.8-10.2); NEUT % 57.9 % (42.8-82.8); PLATELET COUNT 277 10^3/uL (134-434); RBC 4.19 M/mm3 (4.00-5.60); WHITE BLOOD COUNT 9.3 K/mm3 (4.0-10.0)
[2023-01-24 08:48] LABS: URINE BENZODIAZEPINES NEGATIVE (NEGATIVE)
[2023-01-24 08:49] LABS: COCAINE, UR NEGATIVE (NEGATIVE); URINE AMPHETAMINES NEGATIVE (NEGATIVE); URINE BARBITURATES NEGATIVE (NEGATIVE)
[2023-01-24 08:57] LABS: METHADONE, UR POSITIVE (NEGATIVE); OPIATES, URI POSITIVE (NEGATIVE); PHENCYCLIDINE,URINE POSITIVE (NEGATIVE)
[2023-01-24 09:03] LABS: POTASSIUM 3.7 mmol/L (3.5-5.1)
[2023-01-24 09:05] LABS: CALCIUM 9.1 mg/dL (8.5-10.1)
[2023-01-24 09:06] LABS: ALBUMIN 3.6 g/dl (3.4-5.0); BLOOD UREA NITROGEN 14.6 mg/dL (7-18)
[2023-01-24 09:09] LABS: CREATININE 0.9 mg/dL (0.55-1.3)
[2023-01-24 09:10] LABS: BILIRUBIN,TOTAL 0.4 mg/dL (0.2-1); TOT PROT 7.7 g/dl (6.4-8.2)
[2023-01-24] MEDS ORDERED: FUROSEMIDE 40 MG/4 ML INJECTABLE VIAL IVPUSH ONE (14:00)
[2023-01-24] MEDS ORDERED: ACETAMINOPHEN 325 MG TABLET (FP) PO PRN (14:03)
[2023-01-24] MEDS ORDERED: FUROSEMIDE 40 MG/4 ML INJECTABLE VIAL ONE (16:17)
[2023-01-24] MEDS ORDERED: PATIENT'S OWN MEDICATION (NON-FORMULARY) (Olanzapine [Olanzapine] 15 MG Tablet) PO SCH (22:00)
[2023-01-24] MEDS: OLANZAPINE 10 MG, OLANZAPINE 5 MG PO SCH (23:39)
[2023-01-25 02:07] VITALS: BMI 43.6
[2023-01-25] MEDS ORDERED: LORazepam 2 MG/ML SDV VIAL IVPUSH PRN (08:09)
[2023-01-25 09:12] LABS: POTASSIUM 4.1 mmol/L (3.5-5.1)
[2023-01-25 09:15] LABS: CALCIUM 8.9 mg/dL (8.5-10.1)
[2023-01-25 09:17] LABS: BLOOD UREA NITROGEN 14.4 mg/dL (7-18)
[2023-01-25 09:20] LABS: CREATININE 0.8 mg/dL (0.55-1.3)
[2023-01-25] MEDS: FLUoxetine HCL 20 MG CAPSULE PO SCH (10:15)
[2023-01-25] MEDS: THIAMINE HCL 100 MG TABLET (FP) PO SCH (10:15)
[2023-01-25] MEDS: FOLIC ACID 1 MG TABLET (FP) PO SCH (10:15)
[2023-01-25] MEDS: ARIPiprazole 10 MG TABLET PO SCH (10:15)
[2023-01-25] MEDS: ENOXAPARIN NA (PORCINE) 40 MG/0.4 ML DISP.SYRIN SQ SCH (10:15)
[2023-01-25 10:22] VITALS: RESP 20
[2023-01-25] MEDS ORDERED: methaDONE HCL 10 MG TABLET PO ONE (10:30)
[2023-01-25] MEDS: NICOTINE 21 MG/24 HOURS TOPICAL PATCH TD SCH (12:16)
[2023-01-25] MEDS: FUROSEMIDE 20 MG TABLET (FP) PO SCH (12:16)
[2023-01-25] MEDS ORDERED: POLYETHYLENE GLYCOL (HEALTHYLAX) 3350 17 GM PACKET PO SCH (17:44)
[2023-01-25] MEDS: POLYETHYLENE GLYCOL (HEALTHYLAX) 3350 17 GM PACKET PO SCH (21:40)
[2023-01-25] MEDS: OLANZAPINE 10 MG, OLANZAPINE 5 MG PO SCH (21:40)
[2023-01-26 06:00] VITALS: BP 138/75; PULSE 54; TEMP 98.2
[2023-01-26 09:03] LABS: EOS % 1.8 % (0-4.5); HEMATOCRIT 39.6 % (35.4-49); HEMOGLOBIN 12.9 GM/dL (11.7-16.9); LYMPH % 24.6 % (8-40); MCH 30.4 pg (25.7-33.7); MCHC 32.4 g/dl (32.0-35.9); MEAN CELL VOLUME 93.8 fl (80-96); MEAN PLT VOLUME 8.5 fl (7.5-11.1); MONO % 5.8 % (3.8-10.2); NEUT % 66.8 % (42.8-82.8); PLATELET COUNT 263 10^3/uL (134-434); RBC 4.23 M/mm3 (4.00-5.60); RDW 15.4 % (11.9-15.9)
[2023-01-26 09:23] LABS: ALBUMIN 2.9 g/dl (3.4-5.0); BLOOD UREA NITROGEN 8.6 mg/dL (7-18); CALCIUM 9.2 mg/dL (8.5-10.1); MAGNESIUM 2.1 mg/dL (1.8-2.4)
[2023-01-26 09:26] LABS: CREATININE 0.8 mg/dL (0.55-1.3)
[2023-01-26 09:28] LABS: BILIRUBIN,TOTAL 0.8 mg/dL (0.2-1); TOT PROT 6.8 g/dl (6.4-8.2)
[2023-01-26] MEDS: ENOXAPARIN NA (PORCINE) 40 MG/0.4 ML DISP.SYRIN SQ SCH (10:23)
[2023-01-26] MEDS: POLYETHYLENE GLYCOL (HEALTHYLAX) 3350 17 GM PACKET PO SCH (10:23)
[2023-01-26] MEDS: THIAMINE HCL 100 MG TABLET (FP) PO SCH (10:24)
[2023-01-26] MEDS: FLUoxetine HCL 20 MG CAPSULE PO SCH (10:24)
[2023-01-26] MEDS: NICOTINE 21 MG/24 HOURS TOPICAL PATCH TD SCH (10:24)
[2023-01-26] MEDS: ARIPiprazole 10 MG TABLET PO SCH (10:24)
[2023-01-26] MEDS: FUROSEMIDE 20 MG TABLET (FP) PO SCH (10:24)
[2023-01-26] MEDS: FOLIC ACID 1 MG TABLET (FP) PO SCH (10:24)
[2023-01-26] MEDS ORDERED: methaDONE HCL 40 MG DISPERSABLE TABLET PO SCH (11:00)
== END 2023-01-26 12:42 ==
LOC: JER 04:30 → JERBED 12:43 → J8W 01-25 00:05
PROVIDERS: ADMIT Internal Medicine; ATTEND Nurse Practitioner Family
PROC: 3E023GC Introduction of Other Therapeutic Substance into Muscle, Percutaneous Approach (ICD-10-PCS; principal; 2023-01-24)
PROC: 3E033GC Introduction of Other Therapeutic Substance into Peripheral Vein, Percutaneous Approach (ICD-10-PCS; 2023-01-24)
DX: F19.10 Other psychoactive substance abuse, uncomplicated (principal); F11.20 Opioid dependence, uncomplicated; E11.9 Type 2 diabetes mellitus without complications; F20.9 Schizophrenia, unspecified; I10 Essential (primary) hypertension; E78.5 Hyperlipidemia, unspecified; R60.0 Localized edema; G93.41 Metabolic encephalopathy; F32.A Depression, unspecified; Z29.8 Encounter for other specified prophylactic measures
CPT/HCPCS: 36415; 70450-TC; 71045-TC-FY; 80048; 80053; 80307; 82607; 82746; 82962; 83036; 83735; 83880; 85025; 93005; 93010; 93306-TC; 93970-TC; 96372; 96374; 97116-GP; 97161-GP; 99285-25; G0378; G0480

== ENCOUNTER 2023-01-29 03:01 | Inpatient (IN) | payer OTHER ==
[2023-01-29 03:16] VITALS: BMI 42.3
[2023-01-29] MEDS ORDERED: DICYCLOMINE HCL 10 MG CAPSULE PO PRN (03:38)
[2023-01-29] MEDS ORDERED: IBUPROFEN 400 MG TABLET (FP) PO PRN (03:38)
[2023-01-29] MEDS ORDERED: BENZONATATE 200 MG CAPSULE PO PRN (03:38)
[2023-01-29] MEDS ORDERED: NICOTINE POLACRILEX 2 MG GUM BUC PRN (03:38)
[2023-01-29] MEDS ORDERED: ACETAMINOPHEN 325 MG TABLET (FP) PO PRN (03:38)
[2023-01-29] MEDS ORDERED: NALOXONE HCL (KLOXXADO) 8 MG SPRAY NS PRN (03:38)
[2023-01-29] MEDS ORDERED: hydrOXYzine PAMOATE 25 MG CAPSULE (FP) PO PRN (03:38)
[2023-01-29] MEDS ORDERED: ONDANSETRON *ODT* 4 MG TABLET SL PRN (03:38)
[2023-01-29] MEDS ORDERED: MAGNESIUM HYDROX 2400MG/30ML ORAL SUSPENSION 30 ML CUP PO PRN (03:38)
[2023-01-29] MEDS ORDERED: POLYETHYLENE GLYCOL (HEALTHYLAX) 3350 17 GM PACKET PO PRN (03:38)
[2023-01-29] MEDS ORDERED: guaiFENesin 600 MG TABLET.ER (FP) PO PRN (03:38)
[2023-01-29] MEDS ORDERED: NALOXONE HCL 0.4 MG/ML VIAL IM PRN (03:38)
[2023-01-29] MEDS ORDERED: IBUPROFEN 600 MG TABLET (FP) PO PRN (03:38)
[2023-01-29] MEDS ORDERED: NICOTINE 10 MG CARTRIDGE (INHALER) IH PRN (03:38)
[2023-01-29] MEDS ORDERED: BENZOCAINE/MENTHOL (CHLORASEPTIC ) LOZENGE MM PRN (03:38)
[2023-01-29] MEDS ORDERED: LOPERAMIDE HCL 2 MG CAPSULE PO PRN (03:38)
[2023-01-29] MEDS ORDERED: BISMUTH SUBSALICYLATE 524 MG/30 ML PO PRN (03:38)
[2023-01-29] MEDS ORDERED: MAG HYDROX/AL HYDROX/SIMETH 30 ML UNIT-DOSE CUP PO PRN (03:38)
[2023-01-29] MEDS ORDERED: chlordiazePOXIDE HCL 25 MG CAPSULE PO PRN (10:27)
[2023-01-29] MEDS: PRENATAL VITAMINS W/ FOLIC ACID TABLET (FP) PO SCH (10:37)
[2023-01-29] MEDS: NICOTINE 21 MG/24 HOURS TOPICAL PATCH TD SCH (10:53)
[2023-01-29] MEDS: chlordiazePOXIDE HCL 25 MG CAPSULE PO SCH ×3 (10:53→22:57)
[2023-01-29] MEDS ORDERED: methaDONE HCL 40 MG DISPERSABLE TABLET PO ONE (11:00)
[2023-01-29] MEDS: THIAMINE HCL 100 MG TABLET (FP) PO SCH (22:57)
[2023-01-29] MEDS: MELATONIN 5 MG TABLETS PO SCH (22:57)
[2023-01-30] MEDS: chlordiazePOXIDE HCL 25 MG CAPSULE PO SCH ×4 (06:01→22:50)
[2023-01-30] MEDS: NICOTINE 21 MG/24 HOURS TOPICAL PATCH TD SCH (10:57)
[2023-01-30] MEDS: methaDONE HCL 40 MG DISPERSABLE TABLET PO SCH (10:57)
[2023-01-30] MEDS: PRENATAL VITAMINS W/ FOLIC ACID TABLET (FP) PO SCH (10:57)
[2023-01-30] MEDS: THIAMINE HCL 100 MG TABLET (FP) PO SCH (22:50)
[2023-01-30] MEDS: MELATONIN 5 MG TABLETS PO SCH (22:50)
[2023-01-31] MEDS: chlordiazePOXIDE HCL 25 MG CAPSULE PO SCH ×4 (06:00→22:00)
[2023-01-31] MEDS: methaDONE HCL 40 MG DISPERSABLE TABLET PO SCH (06:27)
[2023-01-31] MEDS: NICOTINE 21 MG/24 HOURS TOPICAL PATCH TD SCH (10:34)
[2023-01-31] MEDS: PRENATAL VITAMINS W/ FOLIC ACID TABLET (FP) PO SCH (10:34)
[2023-01-31] MEDS: THIAMINE HCL 100 MG TABLET (FP) PO SCH (21:54)
[2023-01-31] MEDS: MELATONIN 5 MG TABLETS PO SCH (21:54)
[2023-02-01] MEDS ORDERED: chlordiazePOXIDE HCL 10 MG CAPSULE PO PRN
[2023-02-01] MEDS: chlordiazePOXIDE HCL 10 MG CAPSULE PO SCH ×4 (05:55→22:41)
[2023-02-01] MEDS: methaDONE HCL 40 MG DISPERSABLE TABLET PO SCH (06:09)
[2023-02-01] MEDS: PRENATAL VITAMINS W/ FOLIC ACID TABLET (FP) PO SCH (10:27)
[2023-02-01] MEDS: NICOTINE 21 MG/24 HOURS TOPICAL PATCH TD SCH (10:28)
[2023-02-01] MEDS ORDERED: NICOTINE 14 MG/24 HOURS TOPICAL PATCH TD SCH (18:45)
[2023-02-01] MEDS: THIAMINE HCL 100 MG TABLET (FP) PO SCH (22:40)
[2023-02-01] MEDS: MELATONIN 5 MG TABLETS PO SCH (22:41)
[2023-02-02] MEDS ORDERED: chlordiazePOXIDE HCL 10 MG CAPSULE PO SCH (05:00)
[2023-02-02] MEDS: methaDONE HCL 40 MG DISPERSABLE TABLET PO SCH (05:51)
[2023-02-02 06:45] VITALS: RESP 18
[2023-02-02 09:09] VITALS: BP 164/92; PULSE 85; TEMP 97.8
[2023-02-03] MEDS ORDERED: chlordiazePOXIDE HCL 10 MG CAPSULE PO ONE (05:00)
== END 2023-02-02 09:35 | disposition home or self-care (01) | DRG 773 ==
LOC: YASAS 03:01 → Y3N 03:38
PROVIDERS: ADMIT Allergy & Immunology; ATTEND Allergy & Immunology
PROC: HZ2ZZZZ Detoxification Services for Substance Abuse Treatment (ICD-10-PCS; principal; 2023-01-29)
DX: F11.23 Opioid dependence with withdrawal (principal); F10.230 Alcohol dependence with withdrawal, uncomplicated; F16.20 Hallucinogen dependence, uncomplicated; F17.210 Nicotine dependence, cigarettes, uncomplicated; U07.1 COVID-19
CPT/HCPCS: 87635; 90853

== ENCOUNTER 2023-03-10 12:51 | Emergency (ER) | payer OTHER ==
[2023-03-10 13:02] VITALS: BP 121/76; PULSE 57; RESP 20; TEMP 98.4; BMI 43.1
== END 2023-03-10 15:15 | disposition home or self-care (01) ==
LOC: JER 12:51
DX: L02.415 Cutaneous abscess of right lower limb (principal); L02.416 Cutaneous abscess of left lower limb; R22.43 Localized swelling, mass and lump, lower limb, bilateral; R20.2 Paresthesia of skin; I10 Essential (primary) hypertension; L03.115 Cellulitis of right lower limb
CPT/HCPCS: 99283-25

== ENCOUNTER 2023-03-31 10:36 | Inpatient (IN) | payer OTHER ==
[2023-03-31 12:19] VITALS: BMI 41.0
[2023-03-31] MEDS ORDERED: MAGNESIUM HYDROX 2400MG/30ML ORAL SUSPENSION 30 ML CUP PO PRN (15:09)
[2023-03-31] MEDS ORDERED: MAG HYDROX/AL HYDROX/SIMETH 30 ML UNIT-DOSE CUP PO PRN (15:09)
[2023-03-31] MEDS ORDERED: BENZOCAINE/MENTHOL (CHLORASEPTIC ) LOZENGE MM PRN (15:09)
[2023-03-31] MEDS ORDERED: NALOXONE HCL 0.4 MG/ML VIAL IM PRN (15:09)
[2023-03-31] MEDS ORDERED: ACETAMINOPHEN 325 MG TABLET (FP) PO PRN (15:09)
[2023-03-31] MEDS ORDERED: COLLOIDAL OATMEAL 1 BAR EACH TP PRN (15:09)
[2023-03-31] MEDS ORDERED: IBUPROFEN 400 MG TABLET (FP) PO PRN (15:09)
[2023-03-31] MEDS ORDERED: AMMONIUM LACTATE 12% LOTION 225 GM BOTTLE TP PRN (15:09)
[2023-03-31] MEDS ORDERED: LOPERAMIDE HCL 2 MG CAPSULE PO PRN (15:09)
[2023-03-31] MEDS ORDERED: BENZONATATE 200 MG CAPSULE PO PRN (15:09)
[2023-03-31] MEDS ORDERED: hydrOXYzine PAMOATE 25 MG CAPSULE (FP) PO PRN (15:09)
[2023-03-31] MEDS ORDERED: IBUPROFEN 600 MG TABLET (FP) PO PRN (15:09)
[2023-03-31] MEDS ORDERED: POLYETHYLENE GLYCOL (HEALTHYLAX) 3350 17 GM PACKET PO PRN (15:09)
[2023-03-31] MEDS ORDERED: NALOXONE HCL (KLOXXADO) 8 MG SPRAY NS PRN (15:09)
[2023-03-31] MEDS ORDERED: guaiFENesin 600 MG TABLET.ER (FP) PO PRN (15:09)
[2023-03-31] MEDS ORDERED: NICOTINE 14 MG/24 HOURS TOPICAL PATCH TD SCH (15:45)
[2023-03-31] MEDS: POLYETHYLENE GLYCOL (HEALTHYLAX) 3350 17 GM PACKET PO SCH (21:32)
[2023-03-31] MEDS: MELATONIN 5 MG TABLETS PO SCH (21:34)
[2023-03-31] MEDS: THIAMINE HCL 100 MG TABLET (FP) PO SCH (21:34)
[2023-03-31] MEDS: CEPHALEXIN MONOHYDRATE 500 MG CAPSULE (UD) PO SCH ×2 (21:34→21:35)
[2023-03-31] MEDS: PRENATAL VITAMINS W/ FOLIC ACID TABLET (FP) PO SCH (21:35)
[2023-04-01] MEDS: CEPHALEXIN MONOHYDRATE 500 MG CAPSULE (UD) PO SCH ×3 (06:30→21:11)
[2023-04-01] MEDS ORDERED: methaDONE HCL 40 MG DISPERSABLE TABLET PO SCH (07:21)
[2023-04-01] MEDS ORDERED: ARIPiprazole 5 MG TABLET ONE (09:25)
[2023-04-01] MEDS: ARIPiprazole 10 MG TABLET PO SCH (09:28)
[2023-04-01] MEDS: FLUoxetine HCL 20 MG CAPSULE PO SCH (09:49)
[2023-04-01] MEDS: POLYETHYLENE GLYCOL (HEALTHYLAX) 3350 17 GM PACKET PO SCH (09:49)
[2023-04-01] MEDS: PRENATAL VITAMINS W/ FOLIC ACID TABLET (FP) PO SCH (09:50)
[2023-04-01] MEDS ORDERED: ENOXAPARIN NA (PORCINE) 40 MG/0.4 ML DISP.SYRIN SQ SCH (10:00)
[2023-04-01] MEDS ORDERED: FUROSEMIDE 20 MG TABLET (FP) PO SCH (10:00)
[2023-04-01] MEDS ORDERED: BACITRACIN 0.9 GM PACKET TP SCH (10:00)
[2023-04-01] MEDS ORDERED: TUBERCULIN PPD 5 TU/0.1ML SYRINGE (IN PATIENT USE ONLY) ID ONE (10:00)
[2023-04-01] MEDS ORDERED: POLYETHYLENE GLYCOL (HEALTHYLAX) 3350 17 GM PACKET PO PRN (10:14)
[2023-04-01] MEDS: CLOTRIMAZOLE/BETAMET DIPROP 15 GM TUBE TP SCH (10:24)
[2023-04-01] MEDS: NICOTINE 21 MG/24 HOURS TOPICAL PATCH TD SCH (10:25)
[2023-04-01] MEDS: FUROSEMIDE 20 MG TABLET (FP) PO SCH (10:27)
[2023-04-01] MEDS: TOLNAFTATE 1% CREAM 15 GM TUBE TP SCH ×2 (10:27→22:07)
[2023-04-01] MEDS: NICOTINE POLACRILEX 2 MG GUM BUC PRN (10:55)
[2023-04-01 15:08] LABS: BASO % 0.6 % (0-2.0); EOS % 4.1 % (0-4.5); HEMATOCRIT 41.1 % (35.4-49); HEMOGLOBIN 13.4 GM/dL (11.7-16.9); LYMPH % 25.9 % (8-40); MCHC 32.5 g/dl (32.0-35.9); MEAN CELL VOLUME 95.2 fl (80-96); MEAN PLT VOLUME 8.5 fl (7.5-11.1); MONO % 6.8 % (3.8-10.2); NEUT % 62.6 % (42.8-82.8); PLATELET COUNT 278 10^3/uL (134-434); POTASSIUM 4.3 mmol/L (3.5-5.1); RBC 4.31 M/mm3 (4.00-5.60); RDW 14.7 % (11.9-15.9); WHITE BLOOD COUNT 8.6 K/mm3 (4.0-10.0)
[2023-04-01 15:11] LABS: ALBUMIN 3.3 g/dl (3.4-5.0); BLOOD UREA NITROGEN 11.4 mg/dL (7-18); CALCIUM 8.6 mg/dL (8.5-10.1)
[2023-04-01 15:14] LABS: CREATININE 0.8 mg/dL (0.55-1.3)
[2023-04-01 15:16] LABS: BILIRUBIN,TOTAL 0.4 mg/dL (0.2-1); TOT PROT 6.8 g/dl (6.4-8.2)
[2023-04-01 16:05] LABS: SYPHILIS W/ RPR CONF REACTIVE (NONREACTIVE)
[2023-04-01] MEDS: THIAMINE HCL 100 MG TABLET (FP) PO SCH (21:11)
[2023-04-01] MEDS: MELATONIN 5 MG TABLETS PO SCH (21:11)
[2023-04-01] MEDS ORDERED: OLANZapine 7.5 MG TABLET PO SCH (22:00)
[2023-04-01] MEDS: OLANZAPINE 10 MG, OLANZAPINE 5 MG PO SCH (22:07)
[2023-04-02] MEDS: CEPHALEXIN MONOHYDRATE 500 MG CAPSULE (UD) PO SCH ×3 (06:32→21:33)
[2023-04-02] MEDS ORDERED: ARIPiprazole 5 MG TABLET ONE (08:39)
[2023-04-02] MEDS: CLOTRIMAZOLE/BETAMET DIPROP 15 GM TUBE TP SCH (09:58)
[2023-04-02] MEDS: NICOTINE 21 MG/24 HOURS TOPICAL PATCH TD SCH (09:58)
[2023-04-02] MEDS: ARIPiprazole 10 MG TABLET PO SCH (09:59)
[2023-04-02] MEDS: FUROSEMIDE 20 MG TABLET (FP) PO SCH (09:59)
[2023-04-02] MEDS: PRENATAL VITAMINS W/ FOLIC ACID TABLET (FP) PO SCH (09:59)
[2023-04-02] MEDS: FLUoxetine HCL 20 MG CAPSULE PO SCH (10:00)
[2023-04-02] MEDS: TOLNAFTATE 1% CREAM 15 GM TUBE TP SCH ×2 (10:00→23:26)
[2023-04-02] MEDS: NICOTINE POLACRILEX 2 MG GUM BUC PRN ×2 (10:01→14:02)
[2023-04-02 19:50] LABS: PH,URINE 5.5 (5.0-8.0); URINE APPEARANCE CLEAR; URINE BILIRUBIN NEGATIVE (NEGATIVE); URINE COLOR YELLOW; URINE GLUCOSE (UA) NEGATIVE (NEGATIVE); URINE KETONE NEGATIVE (NEGATIVE); URINE LEUK ESTERASE NEGATIVE (NEGATIVE); URINE NITRITE NEGATIVE (NEGATIVE); URINE PROTEIN NEGATIVE (NEGATIVE); URINE UROBILINOGEN 0.2 mg/dL (0.2-1.0)
[2023-04-02] MEDS: THIAMINE HCL 100 MG TABLET (FP) PO SCH (21:32)
[2023-04-02] MEDS: OLANZAPINE 10 MG, OLANZAPINE 5 MG PO SCH (21:32)
[2023-04-02] MEDS: MELATONIN 5 MG TABLETS PO SCH (21:33)
[2023-04-03] MEDS: CEPHALEXIN MONOHYDRATE 500 MG CAPSULE (UD) PO SCH ×3 (06:38→21:36)
[2023-04-03] MEDS ORDERED: ARIPiprazole 5 MG TABLET ONE (08:43)
[2023-04-03] MEDS: FLUoxetine HCL 20 MG CAPSULE PO SCH (09:40)
[2023-04-03] MEDS: PRENATAL VITAMINS W/ FOLIC ACID TABLET (FP) PO SCH (09:40)
[2023-04-03] MEDS: NICOTINE 21 MG/24 HOURS TOPICAL PATCH TD SCH (09:41)
[2023-04-03] MEDS: ARIPiprazole 10 MG TABLET PO SCH (09:41)
[2023-04-03] MEDS: FUROSEMIDE 20 MG TABLET (FP) PO SCH (09:41)
[2023-04-03] MEDS: TOLNAFTATE 1% CREAM 15 GM TUBE TP SCH ×2 (09:41→21:37)
[2023-04-03] MEDS: CLOTRIMAZOLE/BETAMET DIPROP 15 GM TUBE TP SCH (09:41)
[2023-04-03] MEDS: NICOTINE POLACRILEX 2 MG GUM BUC PRN (09:45)
[2023-04-03] MEDS: MELATONIN 5 MG TABLETS PO SCH (21:36)
[2023-04-03] MEDS: OLANZAPINE 10 MG, OLANZAPINE 5 MG PO SCH (21:37)
[2023-04-03] MEDS: THIAMINE HCL 100 MG TABLET (FP) PO SCH (21:37)
[2023-04-04] MEDS: CEPHALEXIN MONOHYDRATE 500 MG CAPSULE (UD) PO SCH ×3 (07:19→21:26)
[2023-04-04] MEDS ORDERED: ARIPiprazole 5 MG TABLET ONE (08:34)
[2023-04-04] MEDS: ARIPiprazole 10 MG TABLET PO SCH (10:03)
[2023-04-04] MEDS: FUROSEMIDE 20 MG TABLET (FP) PO SCH (10:04)
[2023-04-04] MEDS: TOLNAFTATE 1% CREAM 15 GM TUBE TP SCH ×2 (10:04→21:27)
[2023-04-04] MEDS: CLOTRIMAZOLE/BETAMET DIPROP 15 GM TUBE TP SCH (10:04)
[2023-04-04] MEDS: FLUoxetine HCL 20 MG CAPSULE PO SCH (10:05)
[2023-04-04] MEDS: PRENATAL VITAMINS W/ FOLIC ACID TABLET (FP) PO SCH (10:05)
[2023-04-04] MEDS: NICOTINE 21 MG/24 HOURS TOPICAL PATCH TD SCH (10:05)
[2023-04-04] MEDS: MELATONIN 5 MG TABLETS PO SCH (21:26)
[2023-04-04] MEDS: OLANZAPINE 10 MG, OLANZAPINE 5 MG PO SCH (21:26)
[2023-04-04] MEDS: THIAMINE HCL 100 MG TABLET (FP) PO SCH (21:26)
[2023-04-05] MEDS ORDERED: ARIPiprazole 5 MG TABLET ONE (08:34)
[2023-04-05] MEDS: FUROSEMIDE 20 MG TABLET (FP) PO SCH (10:06)
[2023-04-05] MEDS: FLUoxetine HCL 20 MG CAPSULE PO SCH (10:06)
[2023-04-05] MEDS: ARIPiprazole 10 MG TABLET PO SCH (10:06)
[2023-04-05] MEDS: TOLNAFTATE 1% CREAM 15 GM TUBE TP SCH ×2 (10:07→21:29)
[2023-04-05] MEDS: PRENATAL VITAMINS W/ FOLIC ACID TABLET (FP) PO SCH (10:07)
[2023-04-05] MEDS: CLOTRIMAZOLE/BETAMET DIPROP 15 GM TUBE TP SCH (10:08)
[2023-04-05] MEDS: NICOTINE 21 MG/24 HOURS TOPICAL PATCH TD SCH (10:09)
[2023-04-05] MEDS: NICOTINE POLACRILEX 2 MG GUM BUC PRN (10:10)
[2023-04-05] MEDS: MELATONIN 5 MG TABLETS PO SCH (21:28)
[2023-04-05] MEDS: OLANZAPINE 10 MG, OLANZAPINE 5 MG PO SCH (21:28)
[2023-04-05] MEDS: THIAMINE HCL 100 MG TABLET (FP) PO SCH (21:28)
[2023-04-06 06:34] VITALS: TEMP 98
[2023-04-06 08:47] VITALS: BP 128/72; PULSE 72; RESP 17
[2023-04-06] MEDS: FLUoxetine HCL 20 MG CAPSULE PO SCH (09:40)
[2023-04-06] MEDS: ARIPiprazole 10 MG TABLET PO SCH (09:41)
[2023-04-06] MEDS: FUROSEMIDE 20 MG TABLET (FP) PO SCH (09:41)
[2023-04-06] MEDS: NICOTINE 21 MG/24 HOURS TOPICAL PATCH TD SCH (09:41)
[2023-04-06] MEDS: PRENATAL VITAMINS W/ FOLIC ACID TABLET (FP) PO SCH (09:42)
[2023-04-06] MEDS: TOLNAFTATE 1% CREAM 15 GM TUBE TP SCH (09:42)
[2023-04-06] MEDS: CLOTRIMAZOLE/BETAMET DIPROP 15 GM TUBE TP SCH (09:43)
== END 2023-04-06 09:51 | disposition home or self-care (01) | DRG 772 ==
LOC: YASAS 10:36 → Y5N 16:50 → Y3E 17:51
PROVIDERS: ADMIT Allergy & Immunology; ATTEND Psychiatry & Neurology Pain Medicine
PROC: HZ42ZZZ Group Counseling for Substance Abuse Treatment, Cognitive-Behavioral (ICD-10-PCS; principal; 2023-03-31)
DX: F11.20 Opioid dependence, uncomplicated (principal); F16.20 Hallucinogen dependence, uncomplicated; F17.210 Nicotine dependence, cigarettes, uncomplicated; F25.0 Schizoaffective disorder, bipolar type; F32.A Depression, unspecified; L03.115 Cellulitis of right lower limb; E66.01 Morbid (severe) obesity due to excess calories; Z68.41 Body mass index [BMI] 40.0-44.9, adult; Z99.89 Dependence on other enabling machines and devices
CPT/HCPCS: 36415; 80053; 81003; 85025; 86593; 86780; 86803; 87635; 90832; 90853

== ENCOUNTER 2023-07-07 11:18 | Inpatient (IN) | payer OTHER ==
[2023-07-07 12:36] VITALS: BMI 39.5
[2023-07-07 13:35] LABS: BASO % 0.4 % (0-2.0); HEMATOCRIT 38.7 % (35.4-49); HEMOGLOBIN 12.6 GM/dL (11.7-16.9); LYMPH % 13.8 % (8-40); MCH 31.3 pg (25.7-33.7); MCHC 32.6 g/dl (32.0-35.9); MEAN CELL VOLUME 96.1 fl (80-96); MEAN PLT VOLUME 7.9 fl (7.5-11.1); MONO % 7.5 % (3.8-10.2); NEUT % 78.3 % (42.8-82.8); PLATELET COUNT 201 10^3/uL (134-434); RBC 4.03 M/mm3 (4.00-5.60); RDW 14.2 % (11.9-15.9); WHITE BLOOD COUNT 12.6 K/mm3 (4.0-10.0)
[2023-07-07 13:43] LABS: INR 1.34 (0.83-1.09); PROTHROMBIN TIME (PATIENT) 15.5 SEC (9.7-13.0)
[2023-07-07] MEDS ORDERED: CEFTRIAXONE 1,000 MG in DEXTROSE 5%-WATER - 50 ML IVPB ONE (13:44)
[2023-07-07] MEDS ORDERED: AZITHROMYCIN IVPB 500 MG in DEXTROSE 5%-WATER - 250 ML IVPB ONE (13:44)
[2023-07-07 13:46] LABS: ACTIVATED PTT 42.5 SECONDS (25.2-36.5)
[2023-07-07 13:48] LABS: VENOUS BASE EXCESS 1.9 mmol/L (-2-2); VENOUS O2 SATURATION 71.5 % (70-80); VENOUS PCO2 51.1 mmHg (38-52); VENOUS PH 7.36 (7.310-7.410)
[2023-07-07] MEDS ORDERED: AZITHROMYCIN IVPB 500 MG/250 ML BAG IVPB ONE ×2 (13:49→13:50)
[2023-07-07] MEDS ORDERED: CEFTRIAXONE 1 GM/50 ML BAG ONE (13:49)
[2023-07-07 14:08] LABS: POTASSIUM 3.7 mmol/L (3.5-5.1)
[2023-07-07 14:10] LABS: ALBUMIN 3.2 g/dl (3.4-5.0)
[2023-07-07 14:11] LABS: BLOOD UREA NITROGEN 15.4 mg/dL (7-18); MAGNESIUM 2.2 mg/dL (1.8-2.4)
[2023-07-07 14:15] LABS: BILIRUBIN,TOTAL 0.9 mg/dL (0.2-1); TOT PROT 7.1 g/dl (6.4-8.2)
[2023-07-07 14:19] LABS: N-TERMINAL BNP 180.8 pg/ml (5-125)
[2023-07-07] MEDS ORDERED: ALBUTEROL SO4 2.5/IPRATROPIUM 0.5 INH SOL 3 ML VIAL.NEB. NEB ONE ×2 (14:20→15:09)
[2023-07-07 14:48] LABS: CALCIUM 8.1 mg/dL (8.5-10.1)
[2023-07-07] MEDS ORDERED: ALBUTEROL SO4 0.083% IH SOL 2.5 MG/3 ML VIAL.NEB. NEB PRN (16:09)
[2023-07-07] MEDS: INSULIN SLIDING SCALE (NOVOLOG) 1 VIAL SQ SCH ×2 (18:27→22:25)
[2023-07-07] MEDS ORDERED: methylPREDNISolone NA SUCC 125 MG/2 ML VIAL ONE (18:29)
[2023-07-07] MEDS: methylPREDNISolone NA SUCC 40 MG/1 ML VIAL IVPUSH SCH (18:33)
[2023-07-07] MEDS: ALBUTEROL SO4 2.5/IPRATROPIUM 0.5 INH SOL 3 ML VIAL.NEB. NEB SCH (19:12)
[2023-07-07] MEDS: DOXYCYCLINE INJECTION 100 MG in DEXTROSE 5%-WATER 100 ML IVPB SCH (22:20)
[2023-07-07] MEDS: BUDESONIDE/FORMETEROL FUMARATE 160/4.5 mcg INHALER IH SCH (22:20)
[2023-07-08] MEDS: ALBUTEROL SO4 2.5/IPRATROPIUM 0.5 INH SOL 3 ML VIAL.NEB. NEB SCH ×8 (00:17→23:50)
[2023-07-08] MEDS: methylPREDNISolone NA SUCC 40 MG/1 ML VIAL IVPUSH SCH ×3 (01:47→18:30)
[2023-07-08] MEDS: INSULIN SLIDING SCALE (NOVOLOG) 1 VIAL SQ SCH ×4 (06:23→22:04)
[2023-07-08 10:11] LABS: BASO % 0.2 % (0-2.0); HEMATOCRIT 39.2 % (35.4-49); HEMOGLOBIN 12.7 GM/dL (11.7-16.9); LYMPH % 8.7 % (8-40); MCH 30.9 pg (25.7-33.7); MCHC 32.3 g/dl (32.0-35.9); MEAN CELL VOLUME 95.5 fl (80-96); MEAN PLT VOLUME 8.4 fl (7.5-11.1); MONO % 2.5 % (3.8-10.2); NEUT % 88.6 % (42.8-82.8); PLATELET COUNT 221 10^3/uL (134-434); RBC 4.11 M/mm3 (4.00-5.60); RDW 14.2 % (11.9-15.9); WHITE BLOOD COUNT 11.6 K/mm3 (4.0-10.0)
[2023-07-08] MEDS ORDERED: cefTRIAXone SODIUM 1 GM VIAL ONE (10:16)
[2023-07-08] MEDS: PANTOPRAZOLE 40 MG TABLET PO SCH (10:29)
[2023-07-08] MEDS ORDERED: methaDONE HCL 40 MG DISPERSABLE TABLET PO ONE (10:30)
[2023-07-08] MEDS: ENOXAPARIN NA (PORCINE) 40 MG/0.4 ML DISP.SYRIN SQ SCH (10:31)
[2023-07-08] MEDS: DOXYCYCLINE INJECTION 100 MG in DEXTROSE 5%-WATER 100 ML IVPB SCH (10:31)
[2023-07-08] MEDS: BUDESONIDE/FORMETEROL FUMARATE 160/4.5 mcg INHALER IH SCH ×2 (10:33→22:06)
[2023-07-08 10:37] LABS: POTASSIUM 4.1 mmol/L (3.5-5.1)
[2023-07-08 11:29] LABS: ALBUMIN 2.9 g/dl (3.4-5.0); BLOOD UREA NITROGEN 15.3 mg/dL (7-18); CALCIUM 8.6 mg/dL (8.5-10.1); MAGNESIUM 2.1 mg/dL (1.8-2.4)
[2023-07-08 11:33] LABS: CREATININE 0.8 mg/dL (0.55-1.3)
[2023-07-08 11:34] LABS: TOT PROT 6.8 g/dl (6.4-8.2)
[2023-07-08 11:56] LABS: CHOLESTEROL 147 mg/dL (50-200)
[2023-07-08 11:59] LABS: LDL CHOLESTEROL (ONLY SJRH) 81 mg/dL (5-100)
[2023-07-08 12:04] LABS: HDL CHOLESTEROL 37 mg/dL (40-60)
[2023-07-08] MEDS: CEFTRIAXONE 1 GM in DEXTROSE 5%-WATER - 50 ML IVPB SCH (12:46)
[2023-07-08] MEDS: guaiFENesin/D-METHORPHAN HB 10 ML UNIT-DOSE CUPS PO SCH ×2 (13:33→18:32)
[2023-07-08] MEDS: AZITHROMYCIN IVPB 250 MG in DEXTROSE 5%-WATER - 250 ML IVPB SCH (14:28)
[2023-07-08] MEDS ORDERED: DOXYCYCLINE INJECTION 100 MG in DEXTROSE 5%-WATER 100 ML IVPB ONE ×2 (22:00→22:15)
[2023-07-09] MEDS: guaiFENesin/D-METHORPHAN HB 10 ML UNIT-DOSE CUPS PO SCH ×4 (01:27→18:16)
[2023-07-09] MEDS: methylPREDNISolone NA SUCC 40 MG/1 ML VIAL IVPUSH SCH ×3 (01:30→18:16)
[2023-07-09] MEDS: ALBUTEROL SO4 2.5/IPRATROPIUM 0.5 INH SOL 3 ML VIAL.NEB. NEB SCH ×5 (04:10→20:13)
[2023-07-09] MEDS: methaDONE HCL 40 MG DISPERSABLE TABLET PO SCH (07:17)
[2023-07-09] MEDS: INSULIN SLIDING SCALE (NOVOLOG) 1 VIAL SQ SCH ×4 (07:27→22:46)
[2023-07-09] MEDS: THIAMINE HCL 100 MG TABLET (FP) PO SCH (09:18)
[2023-07-09] MEDS: PANTOPRAZOLE 40 MG TABLET PO SCH (09:18)
[2023-07-09] MEDS: ENOXAPARIN NA (PORCINE) 40 MG/0.4 ML DISP.SYRIN SQ SCH (09:18)
[2023-07-09] MEDS: CEFTRIAXONE 1 GM in DEXTROSE 5%-WATER - 50 ML IVPB SCH (09:19)
[2023-07-09] MEDS: FLUoxetine HCL 20 MG CAPSULE PO SCH (09:19)
[2023-07-09] MEDS: TAMSULOSIN HCL 0.4 MG CAP PO SCH (09:19)
[2023-07-09] MEDS: FOLIC ACID 1 MG TABLET (FP) PO SCH (09:19)
[2023-07-09 10:08] LABS: HEMATOCRIT 38.9 % (35.4-49); HEMOGLOBIN 12.5 GM/dL (11.7-16.9); MCH 30.6 pg (25.7-33.7); MCHC 32.2 g/dl (32.0-35.9); MEAN CELL VOLUME 95.1 fl (80-96); MEAN PLT VOLUME 8.5 fl (7.5-11.1); PLATELET COUNT 242 10^3/uL (134-434); RBC 4.09 M/mm3 (4.00-5.60); RDW 14.3 % (11.9-15.9); WHITE BLOOD COUNT 22.8 K/mm3 (4.0-10.0)
[2023-07-09 10:26] LABS: POTASSIUM 3.9 mmol/L (3.5-5.1)
[2023-07-09 10:28] LABS: CALCIUM 8.2 mg/dL (8.5-10.1)
[2023-07-09 10:29] LABS: ALBUMIN 2.6 g/dl (3.4-5.0); BLOOD UREA NITROGEN 14.8 mg/dL (7-18)
[2023-07-09 10:32] LABS: CREATININE 0.9 mg/dL (0.55-1.3)
[2023-07-09 10:33] LABS: BILIRUBIN,TOTAL 0.5 mg/dL (0.2-1); TOT PROT 6.5 g/dl (6.4-8.2)
[2023-07-09] MEDS: AZITHROMYCIN IVPB 250 MG in DEXTROSE 5%-WATER - 250 ML IVPB SCH (11:13)
[2023-07-09 12:03] LABS: ANISOCYTOSIS 2+; MACROCYTOSIS 0; TEAR DROP CELLS 2+
[2023-07-09] MEDS: BUDESONIDE/FORMETEROL FUMARATE 160/4.5 mcg INHALER IH SCH ×2 (12:40→22:43)
[2023-07-09] MEDS ORDERED: LIDOCAINE 5% TOPICAL PATCH TP SCH (14:15)
[2023-07-09] MEDS: LIDOCAINE PATCH REMOVAL MC SCH (22:46)
[2023-07-10] MEDS: ALBUTEROL SO4 2.5/IPRATROPIUM 0.5 INH SOL 3 ML VIAL.NEB. NEB SCH ×7 (01:32→23:47)
[2023-07-10] MEDS: guaiFENesin/D-METHORPHAN HB 10 ML UNIT-DOSE CUPS PO SCH ×4 (01:38→17:13)
[2023-07-10] MEDS: methylPREDNISolone NA SUCC 40 MG/1 ML VIAL IVPUSH SCH ×3 (01:38→17:13)
[2023-07-10] MEDS: methaDONE HCL 40 MG DISPERSABLE TABLET PO SCH (06:53)
[2023-07-10] MEDS: INSULIN SLIDING SCALE (NOVOLOG) 1 VIAL SQ SCH ×4 (06:54→22:56)
[2023-07-10] MEDS: PANTOPRAZOLE 40 MG TABLET PO SCH (09:26)
[2023-07-10] MEDS: FOLIC ACID 1 MG TABLET (FP) PO SCH (09:26)
[2023-07-10] MEDS: TAMSULOSIN HCL 0.4 MG CAP PO SCH (09:26)
[2023-07-10] MEDS: THIAMINE HCL 100 MG TABLET (FP) PO SCH (09:26)
[2023-07-10] MEDS: FLUoxetine HCL 20 MG CAPSULE PO SCH (09:26)
[2023-07-10] MEDS: ENOXAPARIN NA (PORCINE) 40 MG/0.4 ML DISP.SYRIN SQ SCH (09:30)
[2023-07-10] MEDS: BUDESONIDE/FORMETEROL FUMARATE 160/4.5 mcg INHALER IH SCH ×2 (09:30→22:58)
[2023-07-10] MEDS: LIDOCAINE 4% PATCH TP SCH (09:32)
[2023-07-10] MEDS: CEFTRIAXONE 1 GM in DEXTROSE 5%-WATER - 50 ML IVPB SCH (09:33)
[2023-07-10] MEDS: AZITHROMYCIN IVPB 250 MG in DEXTROSE 5%-WATER - 250 ML IVPB SCH (10:43)
[2023-07-10] MEDS: SENNOSIDES 8.8 MG/5 ML SYRUP PO SCH (22:57)
[2023-07-10] MEDS: LIDOCAINE PATCH REMOVAL MC SCH (23:00)
[2023-07-11] MEDS: guaiFENesin/D-METHORPHAN HB 10 ML UNIT-DOSE CUPS PO SCH ×6 (03:11→23:13)
[2023-07-11] MEDS: methylPREDNISolone NA SUCC 40 MG/1 ML VIAL IVPUSH SCH ×3 (03:11→18:06)
[2023-07-11] MEDS: ALBUTEROL SO4 2.5/IPRATROPIUM 0.5 INH SOL 3 ML VIAL.NEB. NEB SCH ×5 (04:48→21:00)
[2023-07-11] MEDS: methaDONE HCL 40 MG DISPERSABLE TABLET PO SCH (05:24)
[2023-07-11] MEDS: INSULIN SLIDING SCALE (NOVOLOG) 1 VIAL SQ SCH ×4 (06:02→23:18)
[2023-07-11 09:58] LABS: HEMATOCRIT 40.2 % (35.4-49); HEMOGLOBIN 12.5 GM/dL (11.7-16.9); MCH 29.6 pg (25.7-33.7); MCHC 31.2 g/dl (32.0-35.9); MEAN CELL VOLUME 94.9 fl (80-96); MEAN PLT VOLUME 8.7 fl (7.5-11.1); PLATELET COUNT 292 10^3/uL (134-434); RBC 4.24 M/mm3 (4.00-5.60); RDW 14.4 % (11.9-15.9); WHITE BLOOD COUNT 24.5 K/mm3 (4.0-10.0)
[2023-07-11 10:29] LABS: ALBUMIN 2.7 g/dl (3.4-5.0); BILIRUBIN,TOTAL 0.6 mg/dL (0.2-1); BLOOD UREA NITROGEN 13.6 mg/dL (7-18); CALCIUM 9.8 mg/dL (8.5-10.1); CREATININE 0.7 mg/dL (0.55-1.3); POTASSIUM 3.9 mmol/L (3.5-5.1); TOT PROT 6.8 g/dl (6.4-8.2)
[2023-07-11] MEDS: ENOXAPARIN NA (PORCINE) 40 MG/0.4 ML DISP.SYRIN SQ SCH (10:39)
[2023-07-11] MEDS: CEFTRIAXONE 1 GM in DEXTROSE 5%-WATER - 50 ML IVPB SCH (10:39)
[2023-07-11] MEDS: TAMSULOSIN HCL 0.4 MG CAP PO SCH (10:40)
[2023-07-11] MEDS: THIAMINE HCL 100 MG TABLET (FP) PO SCH (10:40)
[2023-07-11] MEDS: FOLIC ACID 1 MG TABLET (FP) PO SCH (10:40)
[2023-07-11] MEDS: PANTOPRAZOLE 40 MG TABLET PO SCH (10:40)
[2023-07-11] MEDS: LIDOCAINE 4% PATCH TP SCH (10:40)
[2023-07-11] MEDS: FLUoxetine HCL 20 MG CAPSULE PO SCH (10:41)
[2023-07-11] MEDS: BUDESONIDE/FORMETEROL FUMARATE 160/4.5 mcg INHALER IH SCH ×2 (10:41→23:11)
[2023-07-11 11:13] LABS: ANISOCYTOSIS 0; MACROCYTOSIS 0
[2023-07-11] MEDS: AZITHROMYCIN IVPB 250 MG in DEXTROSE 5%-WATER - 250 ML IVPB SCH (11:51)
[2023-07-11] MEDS ORDERED: SODIUM CHLORIDE 250 ML IV STA (14:49)
[2023-07-11] MEDS: NICOTINE 21 MG/24 HOURS TOPICAL PATCH TD SCH (16:24)
[2023-07-11] MEDS: SENNOSIDES 8.8 MG/5 ML SYRUP PO SCH ×3 (23:09→23:11)
[2023-07-11] MEDS: LIDOCAINE PATCH REMOVAL MC SCH (23:10)
[2023-07-12] MEDS: ALBUTEROL SO4 2.5/IPRATROPIUM 0.5 INH SOL 3 ML VIAL.NEB. NEB SCH ×6 (01:01→20:57)
[2023-07-12] MEDS: methylPREDNISolone NA SUCC 40 MG/1 ML VIAL IVPUSH SCH ×3 (03:16→17:06)
[2023-07-12] MEDS: guaiFENesin/D-METHORPHAN HB 10 ML UNIT-DOSE CUPS PO SCH ×4 (05:58→23:43)
[2023-07-12] MEDS: methaDONE HCL 40 MG DISPERSABLE TABLET PO SCH (05:59)
[2023-07-12] MEDS: INSULIN SLIDING SCALE (NOVOLOG) 1 VIAL SQ SCH ×4 (06:00→22:32)
[2023-07-12] MEDS: NICOTINE 21 MG/24 HOURS TOPICAL PATCH TD SCH (09:18)
[2023-07-12] MEDS: FOLIC ACID 1 MG TABLET (FP) PO SCH (09:18)
[2023-07-12] MEDS: THIAMINE HCL 100 MG TABLET (FP) PO SCH (09:18)
[2023-07-12] MEDS: PANTOPRAZOLE 40 MG TABLET PO SCH (09:18)
[2023-07-12] MEDS: ENOXAPARIN NA (PORCINE) 40 MG/0.4 ML DISP.SYRIN SQ SCH (09:19)
[2023-07-12] MEDS: FLUoxetine HCL 20 MG CAPSULE PO SCH (09:19)
[2023-07-12] MEDS: ARIPiprazole 10 MG TABLET PO SCH (09:19)
[2023-07-12] MEDS: TAMSULOSIN HCL 0.4 MG CAP PO SCH (09:19)
[2023-07-12] MEDS: BUDESONIDE/FORMETEROL FUMARATE 160/4.5 mcg INHALER IH SCH ×2 (09:20→22:28)
[2023-07-12] MEDS: CEFTRIAXONE 1 GM in DEXTROSE 5%-WATER - 50 ML IVPB SCH (09:21)
[2023-07-12] MEDS: LIDOCAINE 4% PATCH TP SCH (09:50)
[2023-07-12 10:03] LABS: HEMATOCRIT 38.5 % (35.4-49); HEMOGLOBIN 12.2 GM/dL (11.7-16.9); MCH 30.4 pg (25.7-33.7); MCHC 31.8 g/dl (32.0-35.9); MEAN CELL VOLUME 95.8 fl (80-96); MEAN PLT VOLUME 8.5 fl (7.5-11.1); PLATELET COUNT 287 10^3/uL (134-434); RBC 4.02 M/mm3 (4.00-5.60); RDW 13.9 % (11.9-15.9); WHITE BLOOD COUNT 26.4 K/mm3 (4.0-10.0)
[2023-07-12 10:20] LABS: POTASSIUM 4.1 mmol/L (3.5-5.1)
[2023-07-12 10:23] LABS: CALCIUM 9.1 mg/dL (8.5-10.1)
[2023-07-12 10:24] LABS: ALBUMIN 2.7 g/dl (3.4-5.0)
[2023-07-12 10:25] LABS: BLOOD UREA NITROGEN 14.1 mg/dL (7-18)
[2023-07-12 10:27] LABS: CREATININE 0.8 mg/dL (0.55-1.3)
[2023-07-12 10:28] LABS: BILIRUBIN,TOTAL 0.7 mg/dL (0.2-1)
[2023-07-12 10:32] LABS: TOT PROT 6.7 g/dl (6.4-8.2)
[2023-07-12] MEDS: AZITHROMYCIN IVPB 250 MG in DEXTROSE 5%-WATER - 250 ML IVPB SCH (10:34)
[2023-07-12] MEDS ORDERED: FUROSEMIDE 20 MG TABLET (FP) PO SCH (11:00)
[2023-07-12 12:09] LABS: ANISOCYTOSIS 0; MACROCYTOSIS 0; ROULEAU 2+
[2023-07-12 12:54] VITALS: RESP 18
[2023-07-12] MEDS ORDERED: NICOTINE POLACRILEX 4 MG GUM BUC PRN (17:36)
[2023-07-12] MEDS ORDERED: hydrALAZINE HCL 20 MG/ML VIAL IVPUSH PRN (17:41)
[2023-07-12] MEDS ORDERED: OLANZapine 5 MG TABLET PO SCH (22:00)
[2023-07-12] MEDS: SENNOSIDES 8.8 MG/5 ML SYRUP PO SCH (22:27)
[2023-07-12] MEDS: LIDOCAINE PATCH REMOVAL MC SCH (22:28)
[2023-07-13] MEDS: ALBUTEROL SO4 2.5/IPRATROPIUM 0.5 INH SOL 3 ML VIAL.NEB. NEB SCH ×4 (00:27→11:40)
[2023-07-13] MEDS: methylPREDNISolone NA SUCC 40 MG/1 ML VIAL IVPUSH SCH ×2 (01:14→10:00)
[2023-07-13] MEDS: guaiFENesin/D-METHORPHAN HB 10 ML UNIT-DOSE CUPS PO SCH ×2 (05:07→11:20)
[2023-07-13] MEDS: methaDONE HCL 40 MG DISPERSABLE TABLET PO SCH (05:07)
[2023-07-13] MEDS: INSULIN SLIDING SCALE (NOVOLOG) 1 VIAL SQ SCH ×3 (06:10→11:53)
[2023-07-13] MEDS: TAMSULOSIN HCL 0.4 MG CAP PO SCH (08:17)
[2023-07-13] MEDS ORDERED: FUROSEMIDE 40 MG/4 ML INJECTABLE VIAL IVPUSH ONE (08:32)
[2023-07-13] MEDS: PANTOPRAZOLE 40 MG TABLET PO SCH (09:57)
[2023-07-13] MEDS: THIAMINE HCL 100 MG TABLET (FP) PO SCH (09:57)
[2023-07-13] MEDS: ARIPiprazole 10 MG TABLET PO SCH (09:58)
[2023-07-13] MEDS: NICOTINE 21 MG/24 HOURS TOPICAL PATCH TD SCH (09:58)
[2023-07-13] MEDS: ENOXAPARIN NA (PORCINE) 40 MG/0.4 ML DISP.SYRIN SQ SCH (09:58)
[2023-07-13] MEDS: LIDOCAINE 4% PATCH TP SCH (09:59)
[2023-07-13] MEDS: FLUoxetine HCL 20 MG CAPSULE PO SCH (09:59)
[2023-07-13] MEDS: FOLIC ACID 1 MG TABLET (FP) PO SCH (09:59)
[2023-07-13] MEDS: BUDESONIDE/FORMETEROL FUMARATE 160/4.5 mcg INHALER IH SCH (10:06)
[2023-07-13] MEDS: CEFTRIAXONE 1 GM in DEXTROSE 5%-WATER - 50 ML IVPB SCH (10:13)
[2023-07-13 10:17] LABS: HEMATOCRIT 37.7 % (35.4-49); HEMOGLOBIN 12.1 GM/dL (11.7-16.9); MCH 30.9 pg (25.7-33.7); MCHC 32.2 g/dl (32.0-35.9); MEAN CELL VOLUME 95.9 fl (80-96); MEAN PLT VOLUME 8.4 fl (7.5-11.1); PLATELET COUNT 301 10^3/uL (134-434); RBC 3.93 M/mm3 (4.00-5.60); RDW 14.3 % (11.9-15.9)
[2023-07-13 10:38] LABS: POTASSIUM 4.4 mmol/L (3.5-5.1)
[2023-07-13 10:44] LABS: BLOOD UREA NITROGEN 14.3 mg/dL (7-18); CALCIUM 8.8 mg/dL (8.5-10.1)
[2023-07-13 10:47] LABS: CREATININE 0.8 mg/dL (0.55-1.3)
[2023-07-13] MEDS: AZITHROMYCIN IVPB 250 MG in DEXTROSE 5%-WATER - 250 ML IVPB SCH (11:20)
[2023-07-13] MEDS ORDERED: methylPREDNISolone NA SUCC 40 MG/1 ML VIAL IVPUSH SCH (14:00)
[2023-07-13 14:53] VITALS: BP 142/83; PULSE 76
[2023-07-13 20:09] VITALS: TEMP 98.5
== END 2023-07-13 14:18 | disposition home or self-care (01) | DRG 139 ==
LOC: JER 11:18 → JERBED 13:59 → J5S 20:12
PROVIDERS: ADMIT Internal Medicine
DX: J18.9 Pneumonia, unspecified organism (principal); I50.33 Acute on chronic diastolic (congestive) heart failure; D72.829 Elevated white blood cell count, unspecified; E11.9 Type 2 diabetes mellitus without complications; F11.20 Opioid dependence, uncomplicated; I10 Essential (primary) hypertension; J44.0 Chronic obstructive pulmonary disease with (acute) lower respiratory infection; E78.5 Hyperlipidemia, unspecified; F17.210 Nicotine dependence, cigarettes, uncomplicated; F41.8 Other specified anxiety disorders; R09.02 Hypoxemia
CPT/HCPCS: 0241U-QW; 36415; 71045-TC-FY; 71275-TC; 76775-TC; 80048; 80053; 80061; 82803; 82962; 83036; 83735; 83880; 84100; 84484; 85025; 85027; 85610; 85730; 86850; 86900; 86901; 87070; 87086; 87205; 93005; 93010; 93306-TC; 94640; 94761; 97116-GP; 97161-GP; 99285-25; Q9967

== ENCOUNTER 2023-11-17 16:35 | Inpatient (IN) | payer OTHER ==
[2023-11-17 17:52] VITALS: BMI 36.1
[2023-11-17] MEDS ORDERED: NALOXONE HCL (KLOXXADO) 8 MG SPRAY NS PRN (20:08)
[2023-11-17] MEDS ORDERED: ONDANSETRON *ODT* 4 MG TABLET SL PRN (20:08)
[2023-11-17] MEDS ORDERED: IBUPROFEN 400 MG TABLET (FP) PO PRN (20:08)
[2023-11-17] MEDS ORDERED: BENZOCAINE/MENTHOL (CHLORASEPTIC ) LOZENGE MM PRN (20:08)
[2023-11-17] MEDS ORDERED: BENZONATATE 200 MG CAPSULE PO PRN (20:08)
[2023-11-17] MEDS ORDERED: MAGNESIUM HYDROX 2400MG/30ML ORAL SUSPENSION 30 ML CUP PO PRN (20:08)
[2023-11-17] MEDS ORDERED: ACETAMINOPHEN 325 MG TABLET (FP) PO PRN (20:08)
[2023-11-17] MEDS ORDERED: guaiFENesin 600 MG TABLET.ER (FP) PO PRN (20:08)
[2023-11-17] MEDS ORDERED: LOPERAMIDE HCL 2 MG CAPSULE PO PRN (20:08)
[2023-11-17] MEDS ORDERED: NALOXONE HCL 0.4 MG/ML VIAL IM PRN (20:08)
[2023-11-17] MEDS ORDERED: POLYETHYLENE GLYCOL (HEALTHYLAX) 3350 17 GM PACKET PO PRN (20:08)
[2023-11-17] MEDS ORDERED: MAG HYDROX/AL HYDROX/SIMETH 30 ML UNIT-DOSE CUP PO PRN (20:08)
[2023-11-17] MEDS ORDERED: IBUPROFEN 600 MG TABLET (FP) PO PRN (20:08)
[2023-11-17] MEDS ORDERED: DICYCLOMINE HCL 10 MG CAPSULE PO PRN (20:08)
[2023-11-17] MEDS ORDERED: BISMUTH SUBSALICYLATE 524 MG/30 ML PO PRN (20:08)
[2023-11-17] MEDS ORDERED: hydrOXYzine PAMOATE 25 MG CAPSULE (FP) PO PRN (20:08)
[2023-11-17] MEDS: THIAMINE 100 MG TABLET PO SCH (22:55)
[2023-11-17] MEDS: MELATONIN 5 MG TABLETS PO SCH (22:55)
[2023-11-18 08:52] VITALS: RESP 20; TEMP 98
[2023-11-18] MEDS ORDERED: methaDONE HCL 10 MG TABLET PO SCH (09:00)
[2023-11-18] MEDS: PRENATAL VITAMINS W/ FOLIC ACID TABLET (FP) PO SCH (09:50)
[2023-11-18] MEDS: METHOCARBAMOL 500 MG TABLET PO PRN (09:50)
[2023-11-18 11:43] LABS: HEMATOCRIT 40.7 % (35.4-49); HEMOGLOBIN 12.9 GM/dL (11.7-16.9); MCH 30.8 pg (25.7-33.7); MCHC 31.7 g/dl (32.0-35.9); MEAN CELL VOLUME 97.1 fl (80-96); MEAN PLT VOLUME 8.7 fl (7.5-11.1); PLATELET COUNT 223 10^3/uL (134-434); RBC 4.19 M/mm3 (4.00-5.60); RDW 14.3 % (11.9-15.9); WHITE BLOOD COUNT 9.3 K/mm3 (4.0-10.0)
[2023-11-18 11:55] LABS: CHLORIDE 108 mmol/L (98-107); POTASSIUM 3.9 mmol/L (3.5-5.1); SODIUM 141 mmol/L (136-145)
[2023-11-18 12:11] LABS: CALCIUM 8.8 mg/dL (8.5-10.1)
[2023-11-18 12:12] LABS: ANION GAP 6 mmol/L (4-13); BLOOD UREA NITROGEN 10.5 mg/dL (7-18); CO2 28 mmol/L (21-32); CREATININE 0.8 mg/dL (0.55-1.3); GLUCOSE,RANDOM 145 mg/dL (74-106)
[2023-11-18 12:13] LABS: BILIRUBIN,TOTAL 0.4 mg/dL (0.2-1)
[2023-11-18 12:14] LABS: TOT PROT 6.1 g/dl (6.4-8.2)
[2023-11-18 12:15] LABS: ALK PHOS 105 U/L (45-117); SGOT/AST 15 U/L (15-37); SGPT/ALT 16 U/L (13-61)
[2023-11-18 12:52] VITALS: BP 152/90; PULSE 71
== END 2023-11-18 15:17 | disposition other institution (70) | DRG 773 ==
LOC: YASAS 16:35 → Y3N 19:57
PROVIDERS: ADMIT Allergy & Immunology; ATTEND Surgery
PROC: HZ2ZZZZ Detoxification Services for Substance Abuse Treatment (ICD-10-PCS; principal; 2023-11-17)
DX: F10.20 Alcohol dependence, uncomplicated (principal); F11.20 Opioid dependence, uncomplicated; F17.210 Nicotine dependence, cigarettes, uncomplicated; I10 Essential (primary) hypertension; E78.5 Hyperlipidemia, unspecified; Z86.19 Personal history of other infectious and parasitic diseases
CPT/HCPCS: 36415; 80053; 80307; 85027; 86593; 86780; 87811

== ENCOUNTER 2023-11-18 16:38 | Inpatient (IN) | payer OTHER ==
[2023-11-18] MEDS ORDERED: guaiFENesin 600 MG TABLET.ER (FP) PO PRN (18:26)
[2023-11-18] MEDS ORDERED: NALOXONE HCL 0.4 MG/ML VIAL IVPUSH PRN (18:26)
[2023-11-18] MEDS ORDERED: IBUPROFEN 400 MG TABLET (FP) PO PRN (18:26)
[2023-11-18] MEDS ORDERED: LOPERAMIDE HCL 2 MG CAPSULE PO PRN (18:26)
[2023-11-18] MEDS ORDERED: BENZONATATE 200 MG CAPSULE PO PRN (18:26)
[2023-11-18] MEDS ORDERED: hydrOXYzine PAMOATE 25 MG CAPSULE (FP) PO PRN (18:26)
[2023-11-18] MEDS ORDERED: NALOXONE (NYS OPIOID OVERDOSE PROGRAM) 4 MG/0.1 ML SPRAY NS PRN (18:26)
[2023-11-18] MEDS ORDERED: ACETAMINOPHEN 325 MG TABLET (FP) PO PRN (18:26)
[2023-11-18] MEDS ORDERED: BENZOCAINE/MENTHOL (CHLORASEPTIC ) LOZENGE MM PRN (18:26)
[2023-11-18] MEDS ORDERED: POLYETHYLENE GLYCOL (HEALTHYLAX) 3350 17 GM PACKET PO PRN (18:26)
[2023-11-18] MEDS ORDERED: MAG HYDROX/AL HYDROX/SIMETH 30 ML UNIT-DOSE CUP PO PRN (18:26)
[2023-11-18] MEDS ORDERED: MAGNESIUM HYDROX 2400MG/30ML ORAL SUSPENSION 30 ML CUP PO PRN (18:26)
[2023-11-18] MEDS: MELATONIN 5 MG TABLETS PO SCH (22:13)
[2023-11-18] MEDS: METHOCARBAMOL 500 MG TABLET PO PRN (22:13)
[2023-11-18] MEDS: THIAMINE 100 MG TABLET PO SCH (22:13)
[2023-11-19] MEDS ORDERED: methaDONE HCL 10 MG TABLET PO SCH (06:00)
[2023-11-19] MEDS: PRENATAL VITAMINS W/ FOLIC ACID TABLET (FP) PO SCH (10:47)
[2023-11-19] MEDS: LISINOPRIL 5 MG TABLET PO SCH (10:47)
[2023-11-20] MEDS: NICOTINE 14 MG/24 HOURS TOPICAL PATCH TD SCH (11:04)
[2023-11-20] MEDS ORDERED: ARIPiprazole 5 MG TABLET PO SCH (11:30)
[2023-11-20] MEDS: FLUoxetine HCL 10 MG CAPSULE PO ONE (11:30)
[2023-11-20] MEDS: ARIPiprazole 10 MG TABLET PO STA (11:31)
[2023-11-20] MEDS: OLANZapine 5 MG TABLET PO SCH (21:19)
[2023-11-21] MEDS: ARIPiprazole 10 MG TABLET PO SCH (11:11)
[2023-11-21] MEDS: FLUoxetine HCL 20 MG CAPSULE PO SCH (11:12)
[2023-11-22] MEDS: IBUPROFEN 600 MG TABLET (FP) PO PRN (06:46)
[2023-11-23] MEDS: POVIDONE-IODINE 10% SOLN 118 ML BOTTLE TP SCH (15:52)
[2023-11-23] MEDS: AMMONIUM LACTATE 12% LOTION 225 GM BOTTLE TP PRN (15:52)
[2023-11-23] MEDS: BACITRACIN 0.9 GM PACKET TP SCH (21:04)
[2023-11-24 06:58] VITALS: TEMP 98
[2023-11-24 08:45] VITALS: BP 131/76; PULSE 66; RESP 16
== END 2023-11-24 13:31 | disposition home or self-care (01) | DRG 772 ==
LOC: YASAS 16:38 → Y3W 16:40
PROVIDERS: ADMIT Allergy & Immunology; ATTEND Psychiatry & Neurology Pain Medicine
PROC: HZ42ZZZ Group Counseling for Substance Abuse Treatment, Cognitive-Behavioral (ICD-10-PCS; principal; 2023-11-18)
DX: F11.20 Opioid dependence, uncomplicated (principal); F10.20 Alcohol dependence, uncomplicated; F16.20 Hallucinogen dependence, uncomplicated; F17.210 Nicotine dependence, cigarettes, uncomplicated; F25.0 Schizoaffective disorder, bipolar type; F19.282 Other psychoactive substance dependence with psychoactive substance-induced sleep disorder; F19.24 Other psychoactive substance dependence with psychoactive substance-induced mood disorder; F32.A Depression, unspecified; F41.9 Anxiety disorder, unspecified; E78.5 Hyperlipidemia, unspecified; I10 Essential (primary) hypertension; B35.3 Tinea pedis; Z86.19 Personal history of other infectious and parasitic diseases; Z86.39 Personal history of other endocrine, nutritional and metabolic disease

== ENCOUNTER 2024-05-01 01:35 | Inpatient (IN) | payer OTHER ==
[2024-05-01 02:29] VITALS: BMI 45.5
[2024-05-01] MEDS ORDERED: LOPERAMIDE HCL 2 MG CAPSULE PO PRN (02:41)
[2024-05-01] MEDS ORDERED: BENZONATATE 200 MG CAPSULE PO PRN (02:41)
[2024-05-01] MEDS ORDERED: NICOTINE POLACRILEX 4 MG GUM BUC PRN (02:41)
[2024-05-01] MEDS ORDERED: POLYETHYLENE GLYCOL (HEALTHYLAX) 3350 17 GM PACKET PO PRN (02:41)
[2024-05-01] MEDS ORDERED: IBUPROFEN 600 MG TABLET (FP) PO PRN (02:41)
[2024-05-01] MEDS ORDERED: NALOXONE (NYS OPIOID OVERDOSE PROGRAM) 4 MG/0.1 ML SPRAY NS PRN (02:41)
[2024-05-01] MEDS ORDERED: NALOXONE (NARCAN) HCL 4 MG/0.1 ML SPRAY NS PRN (02:41)
[2024-05-01] MEDS ORDERED: MAG HYDROX/AL HYDROX/SIMETH 30 ML UNIT-DOSE CUP PO PRN (02:41)
[2024-05-01] MEDS ORDERED: IBUPROFEN 400 MG TABLET (FP) PO PRN (02:41)
[2024-05-01] MEDS ORDERED: ACETAMINOPHEN 325 MG TABLET (FP) PO PRN (02:41)
[2024-05-01] MEDS ORDERED: guaiFENesin 600 MG TABLET.ER (FP) PO PRN (02:41)
[2024-05-01] MEDS ORDERED: BENZOCAINE/MENTHOL (CHLORASEPTIC ) LOZENGE MM PRN ×2 (02:41→14:19)
[2024-05-01] MEDS ORDERED: MAGNESIUM HYDROX 2400MG/30ML ORAL SUSPENSION 30 ML CUP PO PRN (02:41)
[2024-05-01] MEDS ORDERED: methaDONE HCL 10 MG TABLET PO SCH (07:00)
[2024-05-01] MEDS: TUBERCULIN PPD 5 TU/0.1ML SYRINGE (IN PATIENT USE ONLY) ID ONE (10:53)
[2024-05-01] MEDS: NICOTINE 21 MG/24 HOURS TOPICAL PATCH TD SCH (10:56)
[2024-05-01] MEDS: PRENATAL VITAMINS W/ FOLIC ACID TABLET (FP) PO SCH (10:56)
[2024-05-01] MEDS ORDERED: hydrOXYzine PAMOATE 25 MG CAPSULE (FP) PO PRN (12:59)
[2024-05-01] MEDS: FLUoxetine HCL 20 MG CAPSULE PO SCH (13:21)
[2024-05-01] MEDS: FUROSEMIDE 20 MG TABLET (FP) PO SCH (13:29)
[2024-05-01] MEDS ORDERED: DICYCLOMINE HCL 10 MG CAPSULE PO PRN (14:19)
[2024-05-01 14:33] LABS: HEMATOCRIT 37.4 % (35.4-49); HEMOGLOBIN 12.2 GM/dL (11.7-16.9); MCH 31.4 pg (25.7-33.7); MCHC 32.5 g/dl (32.0-35.9); MEAN CELL VOLUME 96.5 fl (80-96); MEAN PLT VOLUME 8.6 fl (7.5-11.1); PLATELET COUNT 221 10^3/uL (134-434); RBC 3.88 M/mm3 (4.00-5.60); RDW 14.3 % (11.9-15.9); WHITE BLOOD COUNT 9.3 K/mm3 (4.0-10.0)
[2024-05-01] MEDS ORDERED: OXYMETAZOLINE 0.05% NASAL SOLUTION 15 ML BOTTLE NS PRN (14:44)
[2024-05-01 14:53] LABS: CHLORIDE 104 mmol/L (98-107); POTASSIUM 3.9 mmol/L (3.5-5.1); SODIUM 139 mmol/L (136-145)
[2024-05-01 14:59] LABS: ALBUMIN 3.1 g/dl (3.4-5.0); ANION GAP 4 mmol/L (4-13); BLOOD UREA NITROGEN 13.1 mg/dL (7-18); CALCIUM 8.6 mg/dL (8.5-10.1); CO2 31 mmol/L (21-32); GLUCOSE,RANDOM 150 mg/dL (74-106)
[2024-05-01 15:02] LABS: CREATININE 0.9 mg/dL (0.55-1.3); SGOT/AST 15 U/L (15-37); SGPT/ALT 16 U/L (13-61)
[2024-05-01 15:04] LABS: BILIRUBIN,TOTAL 0.7 mg/dL (0.2-1); TOT PROT 6.3 g/dl (6.4-8.2)
[2024-05-01 15:05] LABS: ALK PHOS 104 U/L (45-117)
[2024-05-01 15:10] LABS: SYPHILIS W/ RPR CONF REACTIVE (NONREACTIVE)
[2024-05-01] MEDS: AZITHROMYCIN 250 MG TABLET PO ONE (16:57)
[2024-05-01] MEDS: MELATONIN 5 MG TABLETS PO SCH (21:26)
[2024-05-01] MEDS: THIAMINE 100 MG TABLET PO SCH (21:26)
[2024-05-01] MEDS: QUEtiapine FUMARATE 100 MG TABLET (FP) PO SCH (21:27)
[2024-05-02] MEDS: LISINOPRIL 10 MG TABLET PO SCH (09:32)
[2024-05-02] MEDS: AZITHROMYCIN 250 MG TABLET PO SCH (10:26)
[2024-05-02] MEDS: PNEUMOC 20-VAL CONJ-DIP CRM/PF 0.5 ML SYRINGE IM ONE (11:42)
[2024-05-02] MEDS: TAMSULOSIN HCL 0.4 MG CAP PO SCH (14:07)
[2024-05-03] MEDS: HYDROCORTISONE 0.5% TOPICAL CREAM 30 GM TUBE TP PRN (10:12)
[2024-05-03 17:01] LABS: PH,URINE 5.5 (5.0-8.0); URINE APPEARANCE CLEAR; URINE BILIRUBIN NEGATIVE (NEGATIVE); URINE COLOR YELLOW; URINE GLUCOSE (UA) NEGATIVE (NEGATIVE); URINE KETONE NEGATIVE (NEGATIVE); URINE LEUK ESTERASE NEGATIVE (NEGATIVE); URINE NITRITE NEGATIVE (NEGATIVE); URINE PROTEIN NEGATIVE (NEGATIVE); URINE UROBILINOGEN 0.2 mg/dL (0.2-1.0)
[2024-05-07 06:29] VITALS: RESP 16
[2024-05-07 15:41] LABS: MAGNESIUM 1.9 mg/dL (1.8-2.4)
[2024-05-08 06:40] VITALS: TEMP 97.3
[2024-05-08 08:56] VITALS: BP 117/74; PULSE 80
== END 2024-05-08 11:02 | disposition left against medical advice (07) | DRG 770 ==
LOC: YASAS 01:35 → Y3E 03:05
PROVIDERS: ADMIT Allergy & Immunology; ATTEND Psychiatry & Neurology Pain Medicine
PROC: HZ42ZZZ Group Counseling for Substance Abuse Treatment, Cognitive-Behavioral (ICD-10-PCS; principal; 2024-05-01)
DX: F11.20 Opioid dependence, uncomplicated (principal); F14.20 Cocaine dependence, uncomplicated; F17.210 Nicotine dependence, cigarettes, uncomplicated; F19.282 Other psychoactive substance dependence with psychoactive substance-induced sleep disorder; F19.280 Other psychoactive substance dependence with psychoactive substance-induced anxiety disorder; F19.24 Other psychoactive substance dependence with psychoactive substance-induced mood disorder; F41.9 Anxiety disorder, unspecified; F32.A Depression, unspecified; I10 Essential (primary) hypertension; E78.5 Hyperlipidemia, unspecified; E11.9 Type 2 diabetes mellitus without complications; B18.2 Chronic viral hepatitis C; G47.00 Insomnia, unspecified; N40.1 Benign prostatic hyperplasia with lower urinary tract symptoms; R35.1 Nocturia; R05.9 Cough, unspecified; J40 Bronchitis, not specified as acute or chronic; Z86.19 Personal history of other infectious and parasitic diseases
CPT/HCPCS: 0241U-QW; 36415; 71045-TC-FY; 80053; 80061; 80305; 80307; 81003; 82140; 82962; 83735; 83880; 84484; 85025; 85027; 85610; 85730; 86593; 86780; 86803; 87389; 90677; 93005; 93010; 93970-TC; G0009

== ENCOUNTER 2024-06-09 08:12 | Inpatient (IN) | payer OTHER ==
[2024-06-09 08:59] VITALS: BMI 43.3
[2024-06-09] MEDS ORDERED: IBUPROFEN 400 MG TABLET (FP) PO PRN (10:22)
[2024-06-09] MEDS ORDERED: NALOXONE (NARCAN) HCL 4 MG/0.1 ML SPRAY NS PRN (10:22)
[2024-06-09] MEDS ORDERED: IBUPROFEN 600 MG TABLET (FP) PO PRN (10:22)
[2024-06-09] MEDS ORDERED: MAGNESIUM HYDROX 2400MG/30ML ORAL SUSPENSION 30 ML CUP PO PRN (10:22)
[2024-06-09] MEDS ORDERED: hydrOXYzine PAMOATE 25 MG CAPSULE (FP) PO PRN (10:22)
[2024-06-09] MEDS ORDERED: BENZONATATE 200 MG CAPSULE PO PRN (10:22)
[2024-06-09] MEDS ORDERED: BENZOCAINE/MENTHOL (CHLORASEPTIC ) LOZENGE MM PRN (10:22)
[2024-06-09] MEDS ORDERED: POLYETHYLENE GLYCOL (HEALTHYLAX) 3350 17 GM PACKET PO PRN (10:22)
[2024-06-09] MEDS ORDERED: LOPERAMIDE HCL 2 MG CAPSULE PO PRN (10:22)
[2024-06-09] MEDS ORDERED: ACETAMINOPHEN 325 MG TABLET (FP) PO PRN (10:22)
[2024-06-09] MEDS ORDERED: MAG HYDROX/AL HYDROX/SIMETH 30 ML UNIT-DOSE CUP PO PRN (10:22)
[2024-06-09] MEDS ORDERED: guaiFENesin 600 MG TABLET.ER (FP) PO PRN (10:22)
[2024-06-09] MEDS ORDERED: NICOTINE POLACRILEX 4 MG GUM BUC PRN (10:22)
[2024-06-09] MEDS: ERGOCALCIFEROL (VIT D2) 50,000 UNIT (1.25 MG) CAPSULE PO SCH (11:43)
[2024-06-09] MEDS: LISINOPRIL 10 MG TABLET PO SCH (11:43)
[2024-06-09] MEDS ORDERED: methaDONE HCL 40 MG DISPERSABLE TABLET PO ONE (12:00)
[2024-06-09] MEDS: QUEtiapine FUMARATE 100 MG TABLET (FP) PO SCH (21:38)
[2024-06-09] MEDS: THIAMINE 100 MG TABLET PO SCH (21:38)
[2024-06-09] MEDS: MELATONIN 5 MG TABLETS PO SCH (21:38)
[2024-06-10] MEDS: TAMSULOSIN HCL 0.4 MG CAP PO SCH (07:56)
[2024-06-10] MEDS: PRENATAL VITAMINS W/ FOLIC ACID TABLET (FP) PO SCH (10:20)
[2024-06-10] MEDS: FLUoxetine HCL 20 MG CAPSULE PO SCH (10:20)
[2024-06-10] MEDS: CLOTRIMAZOLE 1% CREAM TP SCH (10:21)
[2024-06-10 10:26] LABS: HEMATOCRIT 37.6 % (35.4-49); HEMOGLOBIN 12.4 GM/dL (11.7-16.9); MCH 31.5 pg (25.7-33.7); MEAN CELL VOLUME 95.4 fl (80-96); MEAN PLT VOLUME 8.1 fl (7.5-11.1); PLATELET COUNT 278 10^3/uL (134-434); RBC 3.94 M/mm3 (4.00-5.60); RDW 14.1 % (11.9-15.9); WHITE BLOOD COUNT 7.5 K/mm3 (4.0-10.0)
[2024-06-10 10:34] LABS: POTASSIUM 4.3 mmol/L (3.5-5.1)
[2024-06-10 10:36] LABS: ALBUMIN 3.4 g/dl (3.4-5.0); BLOOD UREA NITROGEN 10.5 mg/dL (7-18)
[2024-06-10 10:39] LABS: CREATININE 0.9 mg/dL (0.55-1.3)
[2024-06-10 10:41] LABS: BILIRUBIN,TOTAL 0.4 mg/dL (0.2-1)
[2024-06-10 10:50] LABS: CALCIUM 8.8 mg/dL (8.5-10.1)
[2024-06-10] MEDS: TRIAMCINOLONE ACET 0.5% OINT 15 GM TUBE TP SCH (12:28)
[2024-06-10 12:37] LABS: SYPHILIS W/ RPR CONF REACTIVE (NONREACTIVE)
[2024-06-12] MEDS: NICOTINE 21 MG/24 HOURS TOPICAL PATCH TD PRN (10:17)
[2024-06-12 11:34] LABS: PH,URINE 5.5 (5.0-8.0); URINE APPEARANCE CLOUDY; URINE BILIRUBIN NEGATIVE (NEGATIVE); URINE COLOR YELLOW; URINE GLUCOSE (UA) NEGATIVE (NEGATIVE); URINE KETONE NEGATIVE (NEGATIVE); URINE LEUK ESTERASE NEGATIVE (NEGATIVE); URINE NITRITE NEGATIVE (NEGATIVE); URINE PROTEIN NEGATIVE (NEGATIVE); URINE UROBILINOGEN 0.2 mg/dL (0.2-1.0)
[2024-06-13] MEDS: FLUoxetine HCL 10 MG CAPSULE PO ONE (10:18)
[2024-06-14] MEDS: FLUoxetine HCL 20 MG CAPSULE PO SCH (09:46)
[2024-06-17] MEDS ORDERED: methaDONE HCL 10 MG TABLET PO SCH (06:00)
[2024-06-19] MEDS: QUEtiapine FUMARATE 200 MG TABLET PO SCH (21:27)
[2024-06-19] MEDS: SUVOREXANT 5 MG TABLET PO PRN (21:28)
[2024-06-19] MEDS ORDERED: SUVOREXANT 10 MG TABLET PO PRN (22:00)
[2024-06-21] MEDS ORDERED: SUVOREXANT 10 MG TABLET PO PRN (22:00)
[2024-06-22] MEDS: SUVOREXANT 5 MG TABLET PO PRN (21:37)
[2024-06-23] MEDS: HYDROCORTISONE 1% TOPICAL CREAM 30 GM TUBE TP PRN (11:22)
[2024-06-26] MEDS: NALOXONE (NYS OPIOID OVERDOSE PROGRAM) 4 MG/0.1 ML SPRAY NS SCH (10:05)
[2024-06-28 06:17] VITALS: TEMP 97.7
[2024-06-28 09:32] VITALS: BP 148/78; PULSE 85; RESP 18
[2024-06-30] MEDS ORDERED: ERGOCALCIFEROL (VIT D2) 50,000 UNIT (1.25 MG) CAPSULE PO SCH (10:00)
== END 2024-06-28 09:28 | disposition home or self-care (01) | DRG 772 ==
LOC: YASAS 08:12 → Y3NR 10:15 → Y3W 06-11 10:38
PROVIDERS: ADMIT Surgery; ATTEND Psychiatry & Neurology Pain Medicine
PROC: HZ42ZZZ Group Counseling for Substance Abuse Treatment, Cognitive-Behavioral (ICD-10-PCS; principal; 2024-06-09)
DX: F11.20 Opioid dependence, uncomplicated (principal); F16.20 Hallucinogen dependence, uncomplicated; F10.20 Alcohol dependence, uncomplicated; F17.210 Nicotine dependence, cigarettes, uncomplicated; F31.9 Bipolar disorder, unspecified; F25.9 Schizoaffective disorder, unspecified; F43.10 Post-traumatic stress disorder, unspecified; E78.5 Hyperlipidemia, unspecified; E55.9 Vitamin D deficiency, unspecified; I10 Essential (primary) hypertension; I89.0 Lymphedema, not elsewhere classified; M17.0 Bilateral primary osteoarthritis of knee; R91.8 Other nonspecific abnormal finding of lung field; Z99.89 Dependence on other enabling machines and devices
CPT/HCPCS: 36415; 80053; 80305; 81003; 82962; 85027; 86593; 86780; 86803; 87811; 93005; 93010

== ENCOUNTER 2025-02-02 14:15 | Emergency (ER) | payer OTHER ==
[2025-02-02 14:24] VITALS: BP 122/70; PULSE 60; RESP 16; TEMP 97.8; BMI 40.3
[2025-02-02] MEDS ORDERED: KETOROLAC TROMETHAMINE 30 MG/1 ML VIAL ONE (15:06)
[2025-02-02] MEDS: KETOROLAC TROMETHAMINE 30 MG/1 ML VIAL IM ONE (15:09)
== END 2025-02-02 15:19 | disposition home or self-care (01) ==
LOC: JERFT 14:15
PROC: 3E0233Z Introduction of Anti-inflammatory into Muscle, Percutaneous Approach (ICD-10-PCS; principal; 2025-02-02)
DX: M62.830 Muscle spasm of back (principal); M54.50 Low back pain, unspecified
CPT/HCPCS: 99284-25